=== PATIENT | male | born 1975 | race Caucasian/White ===

== ENCOUNTER 2022-11-08 09:17 | Outpatient (OUT) | payer BC, SELFPAY ==
[2022-11-08 09:54] LABS: Basophils Percent Auto 0.7 % (0.2-2.0); Eosinophils Absolute Auto 0.2 10^3/uL (0.0-0.7); Hematocrit 45.3 % (42.0-54.0); Hemoglobin 15.2 g/dL (14.0-18.0); Immature Granulocytes Abs Auto 0.01 10^3/uL (0.00-0.03); Immature Granulocytes Pct Auto 0.2 % (0.0-0.5); Lymphocytes Absolute Auto 2.2 10^3/uL (1.2-3.8); Lymphocytes Percent Auto 36.5 % (20.5-60.0); Mean Corpuscular HGB Conc 33.6 g/dL (29.9-35.2); Mean Corpuscular Hemoglobin 31.4 pg (25.9-34.0); Mean Corpuscular Volume 93.6 fL (80.0-94.0); Mean Platelet Volume 11.6 fL (9.5-13.5); Monocytes Absolute Auto 0.5 10^3/uL (0.3-0.8); Monocytes Percent Auto 7.6 % (1.7-12.0); Neutrophils Absolute Auto 3.1 10^3/uL (1.4-6.5); Platelet Count 210 10^3/uL (150-450); Red Blood Count 4.84 10^6/uL (4.70-6.10); Red Cell Distribution Width 12.3 % (11.0-15.0); White Blood Count 5.9 10^3/uL (4.0-11.0)
[2022-11-08 11:06] LABS: Alanine Aminotransferase 63 U/L (16-63); Albumin Globulin Ratio 1.3; Albumin Level 4.7 g/dL (3.4-5.0); Alkaline Phosphatase 132 U/L (46-116); Anion Gap 13.9; Aspartate Amino Transferase 39 U/L (15-37); BUN Creatinine Ratio 26.9; Bilirubin Total 2.3 mg/dL (0.2-1.0); Calcium 9.2 mg/dL (8.5-10.1); Carbon Dioxide 24.1 mmol/L (21.0-32.0); Chloride 102 mmol/L (98-107); Cholesterol 142 mg/dL (<=200); Estimated GFR (African America >60 (>=60); Estimated GFR (Non-African Ame >60 (>=60); Globulin 3.6 g/dL; Glucose 110 mg/dL (74-106); HDL Cholesterol 48 mg/dL (40-60); Sodium 136 mmol/L (136-145); Total Protein 8.3 g/dL (6.4-8.2); Triglycerides 80 mg/dL (<=150)
[2022-11-08 12:25] LABS: Estimated Average Glucose 114 mg/dL; Glycohemoglobin A1C 5.6 % (4.5-6.2)
== END 2022-11-08 09:18 | disposition home or self-care (01) ==
LOC: LAB 09:21
PROVIDERS: PCP Family Medicine; Visit Provider Nurse Practitioner Acute Care
DX: E78.2 Mixed hyperlipidemia (principal); I10 Essential (primary) hypertension; R73.03 Prediabetes
CPT/HCPCS: 36415; 80053; 80061; 83036; 85025

== ENCOUNTER 2024-03-21 14:04 | Outpatient (OUT) | payer BC, SELFPAY ==
--- NOTE | 2024-03-21 14:30 | CA_ITS ---
Patient Name: KWAME LYLES MR#: [id number] : 1975 Exam Date: 03/21/2024 Ordering Doctor: ARIEL ADAMS CNP ECHOCARDIOGRAM REPORT PROCEDURE: CA ECHO LIMITED INDICATIONS: Heart failure with reduced ejection fraction COMPARISON: None. DESCRIPTION: Limited ECHOCARDIOGRAM Real-time transthoracic echocardiography with 2D and M-mode performed. QUALITY: Technical quality was good. LEFT VENTRICLE: Normal chamber size. Mild concentric left ventricular hypertrophy. Systolic function is mildly reduced. Calculated left ventricular ejection fraction is 46%. LV EF: Mildly reduced left ventricular ejection fraction, (45-50%). DIASTOLIC: ATRIAL SEPTUM: LEFT ATRIUM: Mild dilatation. RIGHT ATRIUM: Mild dilatation. RIGHT VENTRICLE: Normal chamber size. Normal systolic function. TRICUSPID VALVE: Normal mobility and thickness. MITRAL VALVE: Normal mobility and thickness. There is no mitral annular calcification. AORTIC VALVE: Normal trileaflet appearance. No visible sclerosis. Normal leaflet mobility. AORTIC ROOT: Normal diameter and appearance. Ascending aorta is normal in size. PULMONIC VALVE: Normal thickness and mobility. PERICARDIUM: No evidence of pericardial effusion. IVC: IVC is dilated (2.8 cm), does not collapse. PLEURA: CONCLUSION: 1. Mild concentric ventricular hypertrophy with mildly reduced systolic function. There is global hypokinesis. Estimated LVEF is 45 to 50%. 2. Normal right ventricular size and systolic function. 3. Mild biatrial dilatation. 4. Limited study performed with no Doppler interrogation as requested. Adult Echocardiography Procedure Report Left Ventricle LVEDD (3.7 - 5.6 cm): 4.38 cm LVESD (2.2 - 4.0 cm): 3.43 cm LVIVS thickness (0.6 - 1.2 cm): 1.24 cm LVPW thickness (0.5 - 1.0 cm): 1.15 cm LVOT Diameter 2.38 cm Left Atrium LA Volume Index (2D A2C): 41.67 ml/m2 Left Atrium Systolic Dimension: 5.19 cm Mitral Valve Right Ventricle Aorta AO Root Diam: 2.98 cm Ascending Ao Diam: 2.80 cm Aortic Valve Tricuspid Valve Pulmonic Valve Right Atrium Right Atrium Systolic Pressure: 50.21 ml, 50.21 ml Dictated by: Alexi Alaniz M.D. on 03/21/2024 at 20:16 Approved by: Alexi Alaniz M.D. on 03/21/2024 at 20:18
== END 2024-03-21 14:05 | disposition home or self-care (01) ==
LOC: CARD 14:05
PROVIDERS: PCP Family Medicine; Visit Provider Nurse Practitioner Family
DX: I50.22 Chronic systolic (congestive) heart failure (principal)
CPT/HCPCS: 93308; 93356

== ENCOUNTER 2024-08-06 07:11 | Outpatient (OUT) | payer BC, SELFPAY ==
--- OUTSIDE RECORDS SUMMARY | 2024-08-06 07:13 | XMS_ITS | Encounter Summary ---
Author Organization [facility] Address [address] [place] [address] Care Team Providers Care School Custodian Name Role Phone Sergio Cano MD Unavailable Sergio Cano MD Primary Care Provider [phone] Encounter Details Date Type Department Care Team (Late st Contact Info) Description 01/09/2024 Abstract [facility] [address] [facility] [address] [place] [id number] Sergio Cano MD [address] [facility] [address] [place], [place] [id number] Social History Tobacco Use Types Packs/Day Years Used Date Smoking Tobacco: Never Smokeless Tobacco: Never Alcohol Use Standard Drinks/Week Comments Yes 0 (1 standard drink = 0.6 oz pur e alcohol) Social Connection and Isolation Panel [NHANES] A nswer Date Recorded In a typical week, how many times do you talk on the phone with family, friends, or neighbors? Patient declined 07/12/2023 How often do you get togethe r with friends or relatives? Patient declined 07/12/2023 How often do you attend orthodox or voodoo serv ices? Patient declined 07/12/2023 Do you belong to any clubs o r organizations such as orthodox groups, unions, fraternal or athletic groups, or school groups? Patient declined 07/12/2023 How often do you attend meet ings of the clubs or organizations you belong to? Patient declined 07/12/2023 Are you , , di vorced, , never , or living with a partner? Patient declined 07/12/2023 AUDIT-C Answer Date Recorded Q1: How often do you have a drink containing alc ohol? Patient declined 07/12/2023 Q2: How many drinks containi ng alcohol do you have on a typical day when you are drinking? Patient declined 07/12/2023 Q3: How often do you have si x or more drinks on one occasion? Patient declined 07/12/2023 Overall Financial Resource Strain (CARDIA) Answe r Date Recorded How hard is it for you to pa y for the very basics like food, housing, medical care, and heating? Patient declined 07/12/2023 [facility] - Occupational Stress Questionnaire Answer Date Recorded Do you feel stress - tense, restless, nervous, or anxious, or unable to sleep at night because your mind is troubled all the time - these days? Rather much 07/12/2023 Exercise Vital Sign Answer Date Recorde d On average, how many days pe r week do you engage in moderate to strenuous exercise (like a brisk walk)? Patient declined On average, how many minutes do you engage in exercise at this level? Patient declined 07/12/2023 Hunger Vital Sign Answer Date Recorded Within the past 12 months, y ou worried that your food would run out before you got the money to buy more. Patient declined Within the past 12 months, t he food you bought just didn't last and you didn't have money to get more. Patient declined 05/2023 PRAPARE - Transportation Answer Date Re corded In the past 12 months, has l ack of transportation kept you from medical appointments or from getting medications? Patient declined 07/12/2023 In the past 12 months, has l ack of transportation kept you from meetings, work, or from getting things needed for daily living? Patient declined 07/12/2023 Housing Stability Vital Sign Answer Shaq e Recorded In the last 12 months, was t here a time when you were not able to pay the mortgage or rent on time? Patient declined 07/12/19 24 Number of Places Lived in the Last Year Not on f ile 07/12/2023 In the last 12 months, was t here a time when you did not have a steady place to sleep or slept in a [place] health care facility (including now)? Patient declined 07/12/2023 Sex and Gender Information Value Date Recorded Sex Assigned at Not on file Legal Sex Male 7:06 PM EDT Gender Identity Not on file Sexual Orientation Not on file documented as of this encounter Plan of Treatment Not on file documented as of this encounter Visit Diagnoses Not on filedocumented in this encounter Care Teams School Custodian Relationship Specialty Start Date End Date Sergio Cano MD [address] [place] [address] [place] [address] PCP - [facility] 01/07/22 Sergio Cano MD [address] [place] [address] [place] [address] PCP - General Family Medicine 06/15/22 documented as of this encounter
--- OUTSIDE RECORDS SUMMARY | 2024-08-06 07:13 | XMS_ITS | Clinical Summary ---
Author Organization [facility] Healthcare Address [address] [place] [address] Care Team Providers Care Food Consultant Name Role Phone Sergio Cano MD Primary Care Provider [phone] Allergies No known active allergies Medications Farxiga 5 MG Take 1 tablet by mouth Daily Active furosemide (Lasix) 40 MG tablet 1 (one) time each day at the same time Active lisinopril 10 MG tablet 1 (one) time each day at the same time Active metoprolol succinate XL (Toprol-XL) 50 MG 24 hr tablet Take 1 tablet every day by oral route for 90 days. 4 Active atorvastatin (Lipitor) 40 MG tablet Take 1 tablet every day by oral route as directed for 90 days. 4 Active aspirin 81 MG EC tablet Take 1 tablet by mouth Daily Active fish oil concentrate (Hebron-3) 1000 MG capsule Take by mouth Daily Active coenzyme Q-10 100 MG capsule Take 100 mg by mouth Daily Active phentermine (Adipex-P) 37.5 MG tabletIndication s:Weight gain Take 1 tablet (37.5 mg) by mouth in the morning. Take before meals. 30 tablet 4 Active baclofen (Lioresal) 10 MG tabletIndication s:Strain of lumbar region, initial encounter Take 2 tablets (20 mg) by mouth in the morning and 2 tablets (20 mg) in the evening and 2 tablets (20 mg) before bedtime. Do all this for 7 days. 42 tablet 4 Active DULoxetine (Cymbalta) [address] Kal ns:Adjustment disorder with depressed mood TAKE ONE CAPSULE BY MOUTH EVERY DAY DO NOT CRUSH OR CHEW. 100 capsule 5 Active Active Problems Problem Noted Date Diagnosed Date Encounter for well adult exam with abnormal find ings 07/19/2023 Assessment & Plan (07/19/2023 9:32 AM EDT): Modest Alcohol consumption No Tobacco Seat Belt use Exercise Regularly No Text Drive Social Accountability Body mass index [BMI] 35.0-35.9, adult (Z68.35) 07/19/2023 Morbid (severe) obesity due to excess calories ( E66.01) 07/19/2023 Assessment & Plan (07/19/2023 9:32 AM EDT): Weight loss thru exercise and diet encouraged Fatty liver, alcoholic 07/19/2023 Assessment & Plan (07/19/2023 9:51 AM EDT): Decrease Alcohol intake Adjustment disorder with depressed mood 06/28/19 24 Elevated liver function tests 06/28/2023 Family history of pancreatic cancer 06/28/2023 Weight gain 06/28/2023 Essential (primary) hypertension 07/29/2022 Assessment & Plan (07/19/2023 9:32 AM EDT): Our specific goals, for your hypertension, is to keep your blood pressure less than 140/90, and the importance of weight control. We made recommendations on how to control your blood pressure, and minimize your risk of these copmplications. We also discussed your current barriers to a healthy living and importance of healthy diet and exercise. Prior to your visit today we have reviewed your chart and formed a plan to assist with providing you the best possible care. We reviewed the possible complications of hypertension including, stroke, heart failure and kidney impairment. In addition, we discussed your medications, the importance of taking them as prescribed. DASH diet handouts Assessment & Plan (06/28/2023 3:03 PM EDT): Our specific goals, for your hypertension, is to keep your blood pressure less than 140/90, and the importance of weight control. We made recommendations on how to control your blood pressure, and minimize your risk of these copmplications. We also discussed your current barriers to a healthy living and importance of healthy diet and exercise. Prior to your visit today we have reviewed your chart and formed a plan to assist with providing you the best possible care. We reviewed the possible complications of hypertension including, stroke, heart failure and kidney impairment. In addition, we discussed your medications, the importance of taking them as prescribed. DASH diet handouts Gout 07/29/2022 Chronic systolic congestive heart failure 2022 Assessment & Plan (06/28/2023 3:04 PM EDT): Follow up with cardiology Impaired fasting glucose 07/29/2022 Insomnia 07/29/2022 Male hypogonadism 07/29/2022 Assessment & Plan (06/28/2023 3:04 PM EDT): Patient has stopped meds Peripheral neuropathic pain 07/29/2022 Sleep apnea in adult 07/29/2022 Mixed hyperlipidemia 11/18/2020 Overview (06/28/2023): Last Assessment & Plan: Continue atorvastatin 40 mg daily his lipid profile is well controlled Dyspnea 07/13/2018 Overview (06/28/2023): Last Assessment & Plan: Improved and back to baseline Edema 07/13/2018 Overview (06/28/2023): Last Assessment & Plan: Improved and stable Encounters Date Type Department Care Team Description 05/22/2024 Refill [facility] [address] [place] [address] [place] [phone] Sergio Cano MD Adjustment disorder with depressed mood from Last 3 Months Immunizations Immunization Administration Dates Next Due Influenza, injectable, MDCK, preservative free, quadrivalent 03/07/2019 Family History Medical History Relation Name Comments Cancer Brother Cecilio Arthritis Father Law Hypertension Father Law Arthritis Father's Brother Jaron Cancer Father's Brother Jaron Stroke Father's Brother Jaron Arthritis Father's Sister 1 Felisa Cancer Father's Sister 2 Mica Cancer Father's Sister 3 Nikki K Diabetes Maternal Grandmother Irena Hypertension Maternal Grandmother Irena Cancer Mother Koki Arthritis Paternal Grandfather Blane Cancer Paternal Grandfather Blane Cancer Paternal Grandmother Quin Stroke Paternal Grandmother Quin Relation Name Status Comments Brother Cecilio Father Law Father's Brother Jaron Father's Sister 1 Felisa Father's Sister 2 Mica Father's Sister 3 Nikki Caruso Maternal Grandmother Irena Mother Koki Paternal Grandfather Blane Paternal Grandmother Quin Social History Tobacco Use Types Packs/Day Years Used Date Smoking Tobacco: Never Smokeless Tobacco: Never Tobacco Cessation:Counseling Given: Not Answered Alcohol Use Standard Drinks/Week Comments Yes 0 [...] declined 07/12/2023 How often do you attend amish or church serv ices? Patient declined 07/12/2023 Do you belong to any clubs o r organizations such as amish groups, unions, fraternal or athletic groups, or [...] medical care, and heating? Patient declined 07/12/2023 [facility] [place] [facility] - Occupational Stress Questionnaire Answer Date Recorded [...] place to sleep or slept in a half-way (including now)? Patient declined 07/12/2023 Sex and Gender Information Value Date Recorded Sex Assigned at Not on file Legal Sex Male 7:06 PM EDT Gender Identity Not on file Sexual Orientation Not on file Last Filed Vital Signs Vital Sign Reading Time Taken Comments Blood Pressure 128/78 07/19/2023 9:27 AM EDT Pulse 75 07/19/2023 9:27 AM EDT Temperature - - Respiratory Rate - - Oxygen Saturation 96% 07/19/2023 9:27 AM EDT Inhaled Oxygen Concentration - - Weight 127 kg (281 lb) 07/19/2023 9:27 AM EDT Height 188 cm (6' 2 ) 07/19/2023 9:27 AM EDT Body Mass Index 36.08 07/19/2023 9:27 AM EDT Plan of Treatment Health Maintenance Due Date Last Done Comments CT Colonography 1975 Colonoscopy 1975 FIT 1975 FOBT 1975 Sigmoidoscopy 1975 Influenza Vaccine (Season Ended) 2024 03/07/19 20 Colorectal Cancer Screening 07/28/2026 FIT-DNA 07/28/2026 07/29/2023 Procedures Procedure Name Priority Date/Time Associated Diagnosis Comments LAB COLOGUARD COLON CANCER SCREEN Routine 07/29/2023 6:30 AM EDT Screen for colon cancer from Last 3 Months or Most Recently Relevant to Health Maintenance Results * Cologuard?? colon cancer screening (07/29/2023 6:30 AM EDT) NONINV COLON CA DNA+OCC BLD SCRN STL-IMP Negative Negative 08/02/2023 5:34 PM EDT [employer] (CLIA #:[id number]) Comment: NEGATIVE TEST RESULT. A negative Cologuard result indicates a low likelihood that a colorectal cancer (CRC) or advanced adenoma (adenomatous polyps with more advanced pre-malignant features) is present. The chance that a person with a negative Cologuard test has a colorectal cancer is less than 1 in 1500 (negative predictive value >99.9%) or has an advanced adenoma is less than 5.3% (negative predictive value 94.7%). These data are based on a prospective cross-sectional study of 10,000 individuals at average risk for colorectal cancer who were screened with both Cologuard and colonoscopy. (Bambi Powers et al, N Engl J Med 2014;370(14):5297-8576) The normal value (reference range) for this assay is negative. COLOGUARD RE-SCREENING RECOMMENDATION: Periodic colorectal cancer screening is an important part of preventive healthcare for asymptomatic individuals at average risk for colorectal cancer. Following a negative Cologuard result, the [place] Cancer Society and U.S. Multi-Society Task Force screening guidelines recommend a Cologuard re-screening interval of 3 years. References: [place] Cancer Society Guideline for Colorectal Cancer Screening: https://www.cancer.org/cancer/sgqlr-vxohnw-fbqcup/xgfdasxjx-uiogqozhx-wtqtrlk/ac s-rec ommendations.html.; Fabricio DK, Brett BUTTS, Dominitz JK, Colorectal Cancer Screening: Recommendations for Physicians and Patients from the U.S. Multi-Society Task Force on Colorectal Cancer Screening , Am J Gastroenterology 2017; 112:1817-4749. TEST DESCRIPTION: Composite algorithmic analysis of stool DNA-biomarkers with hemoglobin immunoassay. Quantitative values of individual biomarkers are not reportable and are not associated with individual biomarker result reference ranges. Cologuard is intended for colorectal cancer screening of adults of either sex, 45 years or older, who are at average-risk for colorectal cancer (CRC). Cologuard has been approved for use by the U.S. FDA. The performance of Cologuard was established in a cross sectional study of average-risk adults aged 50-84. Cologuard performance in patients ages 45 to 49 years was estimated by sub-group analysis of near-age groups. Colonoscopies performed for a positive result may find as the most clinically significant lesion: colorectal cancer [4.0%], advanced adenoma (including sessile serrated polyps greater than or equal to 1cm diameter) [20%] or non- advanced adenoma [31%]; or no colorectal neoplasia [45%]. These estimates are derived from a prospective cross-sectional screening study of 10,000 individuals at average risk for colorectal cancer who were screened with both Cologuard and colonoscopy. (Bambi Rouse. et al, N Engl J Med 2014;370(14):1632-8093.) Cologuard may produce a false negative or false positive result (no colorectal cancer or precancerous polyp present at colonoscopy follow up). A negative Cologuard test result does not guarantee the absence of CRC or advanced adenoma (pre-cancer). The current Cologuard screening interval is every 3 years. ([place] Cancer Society and U.S. Multi-Society Task Force). Cologuard performance data in a 10,000 patient pivotal study using colonoscopy as the reference method can be accessed at the following location: www.[employer]/results. Additional description of the Cologuard test process, warnings and precautions can be found at www.[employer].com. Stool specimen (specimen) 07/29/2023 6:30 AM EDT 07/30/2023 7:39 AM EDT us Sergio Cano MD LAB MOLECULAR DIAGNOSTICS ORDERA BLES Final Result [employer] (CLIA #:[id number]) Elias [address] [place] [address], [place] [phone] from Last 3 Months or Most Recently Relevant to Health Maintenance Insurance [facility] Care Teams Food Consultant Relationship Specialty Start Date End Date Sergio Cano MD [address] [address] PCP - General Family Medicine 06/15/22
--- OUTSIDE RECORDS SUMMARY | 2024-08-06 07:13 | XMS_ITS | Encounter Summary ---
Author Organization [facility] Address [address] [place] [address] Care Team Providers Care Autocad Electrical Designer Name Role Phone Sergio Cano MD Unavailable Sergio Cano MD Primary Care Provider [phone] Encounter Details Date Type Department Care Team (Late st Contact Info) Description 07/25/2023 Abstract [facility] [address] [facility] [address] [place] [phone] Sergio Cano MD [address] [facility] 110 [place], [place] [id number] Social History Tobacco Use Types Packs/Day Years [...] declined 07/12/2023 How often do you attend restoration or church serv ices? Patient declined 07/12/2023 Do you belong to any clubs o r organizations such as restoration groups, unions, fraternal or athletic groups, or [...] medical care, and heating? Patient declined 07/12/2023 [facility] - Occupational Stress Questionnaire Answer Date Recorded [...] place to sleep or slept in a correction (including now)? Patient declined 07/12/2023 Sex and Gender Information Value Date Recorded Sex Assigned at Not on file Legal Sex Male 7:06 PM EDT Gender Identity Not on file Sexual Orientation Not on file documented as of this encounter Plan of Treatment Not on file documented as of this encounter Visit Diagnoses Not on filedocumented in this encounter Care Teams Autocad Electrical Designer Relationship Specialty Start Date End Date Sergio Cano MD [address] [place] [address] [place] [address] PCP - [facility] 01/07/22 Sergio Cano MD [address] [place] [address] [place] [address] PCP - General Family Medicine 06/15/22 documented as of this encounter
--- OUTSIDE RECORDS SUMMARY | 2024-08-06 07:13 | XMS_ITS | Encounter Summary ---
Author Organization [facility] Address [address] [place] [address] Care Team Providers Care Dramatic Teacher Name Role Phone Sergio Cano MD Unavailable Sergio Cano MD Primary Care Provider [phone] Encounter Details Date Type Department Care Team (Late st Contact Info) Description 02/20/2024 Orders Only [facility] [address] [place] [address] [place] [phone] Unallocated, [facility] Provider, [address] [place] [address] Social History Tobacco Use Types Packs/Day Years [...] declined 07/12/2023 How often do you attend muslim or protestant serv ices? Patient declined 07/12/2023 Do you belong to any clubs o r organizations such as muslim groups, unions, fraternal or athletic groups, or [...] medical care, and heating? Patient declined 07/12/2023 [facility] - Occupational Stress Questionnaire Answer Date [...] place to sleep or slept in a longterm (including now)? Patient declined 07/12/2023 Sex and Gender Information Value Date Recorded Sex Assigned at Not on file Legal Sex Male 7:06 PM EDT Gender Identity Not on file Sexual Orientation Not on file documented as of this encounter Plan of Treatment Not on file documented as of this encounter Procedures Procedure Name Priority Date/Time Associated Diagnosis Comments ECG 12-LEAD Routine 02/20/2024 1:01 PM EST documented in this encounter Results * ECG 12 lead (02/20/2024 1:01 PM EST) us [facility] Provider Unallocated ECG ORDERABLES Fin al Result documented in this encounter Visit Diagnoses Not on filedocumented in this encounter Care Teams Dramatic Teacher Relationship Specialty Start Date End Date Sergio Cano MD [address] [place] [address] [place], [place] [id number] PCP - [facility] 01/07/22 Sergio Cano MD [address] [place] [address] [place], [place] [phone] PCP - General Family Medicine 06/15/22 documented as of this encounter
--- OUTSIDE RECORDS SUMMARY | 2024-08-06 07:13 | XMS_ITS | Encounter Summary ---
Author Organization [facility] Address [address] [place] [address] Care Team Providers Care Foam Rubber Curer Name Role Phone Sergio Cano MD Unavailable Sergio Cano MD Primary Care Provider [phone] Encounter Details Date Type Department Care Team (Late st Contact Info) Description 04/20/2024 Abstract [facility] [address] [facility] [address] [place] [phone] Sergio Cano MD [address] [place] [facility] [address] [place], [place] [id number] Social History Tobacco Use Types Packs/Day Years [...] declined 07/12/2023 How often do you attend baptism or mosque serv ices? Patient declined 07/12/2023 Do you belong to any clubs o r organizations such as baptism groups, unions, fraternal or athletic groups, or [...] medical care, and heating? Patient declined 07/12/2023 [facility] - Occupational Stress Questionnaire Answer Date Recorded [...] place to sleep or slept in a senior living (including now)? Patient declined 07/12/2023 Sex and Gender Information Value Date Recorded Sex Assigned at Not on file Legal Sex Male 7:06 PM EDT Gender Identity Not on file Sexual Orientation Not on file documented as of this encounter Plan of Treatment Not on file documented as of this encounter Visit Diagnoses Not on filedocumented in this encounter Care Teams Foam Rubber Curer Relationship Specialty Start Date End Date Sergio Cano MD [address] [place] [address] [place] [address] PCP - [facility] 01/07/22 Sergio Cano MD [address] [place] [address] [place] [address] PCP - General Family Medicine 06/15/22 documented as of this encounter
--- OUTSIDE RECORDS SUMMARY | 2024-08-06 07:13 | XMS_ITS | Clinical Summary ---
Author Organization [facility] Address [address] [place] [address] Care Team Providers Care Plastic Card Grader Cardroom Name Role Phone Sergio Cano MD Primary Care Provider [phone] Allergies No known active allergies Medications DULoxetine (Cymbalta) [address] capsule Take 60 mg by mouth in the morning. 4 08/23/19 25 Active lisinopril 20 mg tabletIndication s:Essential hypertension Take 1 tablet (20 mg) by mouth in the morning. 90 tablet 3 4 01/16/20 25 Active furosemide (Lasix) 40 mg tabletIndication s:Chronic systolic heart failure (CMS/HCC),VOGT (dyspnea on exertion) Take 1 tablet (40 mg) by mouth in the morning. 90 tablet 3 4 01/25/20 25 Active be-kxq-kdslr-K1- lycopen-lutein (Centrum Silver Men) [id number] mcg tablet Take 1 tablet by mouth in the morning. Active atorvastatin (Lipitor) 40 mg tabletIndication s:Coronary artery disease due to lipid rich plaque Take 1 tablet (40 mg) by mouth at bedtime. 90 tablet 3 5 02/22/19 26 Active Additional Information Patient taking differently:40 mg oralEvery morning, Reported on 03/08/2024 apixaban (Eliquis) 5 mg tabletIndication s:Persistent atrial fibrillation (CMS/HCC) Take 1 tablet (5 mg) by mouth two times daily. 180 tablet 3 5 03/28/19 26 Active metoprolol succinate XL (Toprol-XL) 100 mg 24 hr tabletIndication s:Persistent atrial fibrillation (CMS/HCC) Take 1 tablet (100 mg) by mouth once daily as directed. Do not crush or chew. 90 tablet 3 5 04/06/19 27 Active dapagliflozin propanediol (Farxiga) 5 mgIndications:Co ngestive heart failure, unspecified HF chronicity, unspecified heart failure type (CMS/HCC) Take 1 tablet (5 mg) by mouth once daily as directed. 90 tablet 3 5 04/06/19 26 Active Active Problems Problem Noted Date Diagnosed Date Paroxysmal atrial fibrillation 01/04/2024 Body mass index (BMI) 35.0-35.9, adult 4 Encounter for well adult exam with abnormal find ings 07/19/2023 Fatty liver, alcoholic 07/19/2023 Morbid (severe) obesity due to excess calories 0 07/19/2023 Adjustment disorder with depressed mood 06/28/19 Elevated liver function tests 06/28/2023 Family history of pancreatic cancer 06/28/2023 Weight gain 06/28/2023 Impaired fasting glucose 07/29/2022 023 Insomnia 07/29/2022 10/22/2022 Male hypogonadism 07/29/2022 10/22/2022 Peripheral neuropathic pain 07/29/202210/08 Acute on chronic systolic heart failure, NYHA cl ass 2 04/02/2022 Overview (04/09/2022): cardiac function has normalized according to echo in February 2019 and February 2021 with therapy. Visit of 07/13/2018: This is a 43-year-old man referred for lower extremity edema, shortness of breath on exertion, and abnormal echocardiogram. About 4 months ago he started having symptoms of chills of breath on exertion and lower extremity edema. He was seen recently by his PCP and underwent testing that included an echocardiogram that showed reduced left ventricular systolic function with an ejection fraction of 40-45 percent. His right-sided pressures were normal by echocardiogram. He was started on Lasix 40 mg daily with good response of the leg swelling. However he continues to have shortness of breath on exertion. This is moderate in intensity and is relieved by rest. He denies chest pain. He has no palpitations. He is likely prediabetic with a fasting blood sugar of 125. His hemoglobin A1c was within normal range. He has obstructive sleep apnea and uses CPAP at night. I reviewed his blood pressure monitoring at home and shows elevated blood pressure consistently with systolic blood pressure between 140-160 and diastolic blood pressure around 90-100. Labs 05/09/2018: TG 96, HDL 38, Chol 180, LDL 123. notable for elevated D-Dimers after which he had a lower extremity duplex and this was negative. EKG today 07/13/2018: Normal sinus rhythm venous duplex scan 05/20/2018: No deep venous thrombosis in the legs. Echocardiogram 06/19/2018: Left ventricular systolic function is difficult to assess but appears reduced with visually estimated ejection fraction of about 40-45 percent. Right ventricular systolic function appears preserved. Mild mitral regurgitation. Normal right sided pressures. Visit of 07/26/2018: He is seen in follow up. At last visit I started him on lisinopril and metoprolol succinate. His blood pressure has been controlled. His dyspnea is still the same. His leg swelling has improved significantly on furosemide. BMP 07/24/2018 was w/n normal except for elevated BS but he was not fasting. Visit of 09/04/2018: He is seen in follow-up. After last visit I proceeded with cardiac catheterization that showed normal coronary arteries. He feels good. No chest pain, some dyspnea on exertion. In NYHA class II. No palpitation. Mild leg swelling. Cardiac catheterization 08/03/2018: 1. Normal coronary angiogram. 2. Mildly elevated filling pressures. 3. Normal pulmonary arterial pressures. 4. Preserved cardiac output and cardiac index. 5. No evidence of aortic stenosis. Visit of 06/18/2019, He is seen in follow-up via telemedicine. He has been doing very well. He has no angina and no shortness of breath. He has been using Lasix on an as-needed basis. In May he underwent appendectomy. His BMP at that time showed normal renal function and normal electrolytes. From a cardiac perspective his most recent echocardiogram in February 2019 showed normalization of his ventricular function with treatment. His blood pressure recently has been elevated with systolic levels around 150. ECHO 02/19/19 Global left ventricular systolic function is normal (Visually estimated EF 60- 65%). The left ventricle is normal size. Left ventricular wall thickness is normal. No regional wall motion abnormality. Normal diastolic function. Normal right ventricular systolic function. The right ventricle is normal in size. Doppler studies suggest normal right sided pressures. The IVC is dilated. There is no inspiratory collapse of the IVC. Visit of 03/06/2021: He is seen in follow-up. He has been doing great. No chest pain. No heart failure symptoms. He uses CPAP at night. No lower extremity edema. No palpitations. Labs from 05/20/20: BUN 14, CR 1.0- normal LFT normal Chol 196, Trig 95, HDL 39, [id number] - elevated A1C 5.5 - normal CBC normal 11/18/20 A1C 5.5 Echocardiogram 02/18/2021: LV systolic function is normal, EF 55 to 60%, septum abnormal in motion likely related to underlying bundle branch block, biatrial enlargement, right ventricle is mildly dilated with normal systolic function, no significant valvular dysfunction, RVSP 26 mmHg. Blood testing 01/13/2021: LFTs normal, cholesterol 85, HDL 37, triglycerides 48, LDL 38. Blood testing 05/20/2020: BUN 14, creatinine 1.0, potassium 5.1. Assessment & Plan (04/09/2022 1:32 PM EST): NYHC II C Currently weight is down 6 pounds from last visit symptoms are much improved renal function remained stable Discussed with patient he can increase Lasix as needed to 40 mg twice daily for weight gain, Increased shortness of breath, increased edema and he voiced understanding Continue goal-directed medical therapy with aspirin, Farxiga, Lasix 40 mg daily, lisinopril and Toprol Assessment & Plan (04/02/2022 12:48 PM EST): NYHC- II-III stage C Continue GDMT- ASA, lipitor, toprol, farxiga and lisinopril. Diuretic therapy- will increase lasix to 40 mg bid at least 2-3 days- labs to be drawn today and repeat BMP in 1 week Monitor daily weights, I&O, fluid restriction 1.5-2L/day, renal function and electrolytes- please maintain K+>4 and Mg > 2 Heart disease, hypertensive, with heart failure 04/02/2022 Assessment & Plan (04/09/2022 1:33 PM EST): Controlled continue med regimen Assessment & Plan (04/02/2022 12:49 PM EST): Currently elevated- will diurese pt and re-evaluate next week May benefit transition to entresto from lisinopril YUE (obstructive sleep apnea) 04/02/2022 Mixed hyperlipidemia 11/18/2020 Assessment & Plan (04/09/2022 1:33 PM EST): Continue atorvastatin 40 mg daily his lipid profile is well controlled Assessment & Plan (04/02/2022 12:49 PM EST): Continue lipitor Hypertensive disorder 12/12/2019 Systolic heart failure 12/12/2019 Assessment & Plan (04/02/2022 12:49 PM EST): As above Obstructive sleep apnea syndrome 12/12/2019 Dyspnea 07/13/2018 Assessment & Plan (04/09/2022 1:33 PM EST): Improved and back to baseline Assessment & Plan (04/02/2022 12:50 PM EST): Increased VOGT with fluid overload Will repeat echocardiogram, and basic labs today Increase diuretic to bid 40 mg lasix Edema 07/13/2018 Assessment & Plan (04/09/2022 1:33 PM EST): Improved and stable Assessment & Plan (04/02/2022 12:51 PM EST): As above- increase diuretics Resolved Problems Problem Noted Date Diagnosed Date Resolved Date Gout 07/29/2022 10/22/2022 05/29/2024 Encounters Date Type Department Care Team Description 06/07/2024 3:00 PM EDT Office Visit [facility] [place] [address] [place] [address] Ladi Guevara CNP Paroxysmal atrial fibrillation (CMS/HCC) (Primary Dx); Chronic systolic heart failure (CMS/HCC); Benign hypertensive heart disease with heart failure (CMS/HCC); S/P ablation of atrial fibrillation; Mixed hyperlipidemia from Last 3 Months Family History Medical History Relation Name Comments Cancer Brother Cecilio Atrial fibrillation Father Law Heart failure Father Law Systolic Heart attack Maternal Grandfather Doc Cancer Mother Koki Cancer Paternal Grandfather Elijah Cancer Paternal Grandmother Quin Relation Name Status Comments Brother Cecilio Alive Father Law Alive Maternal Grandfather Doc Mother Koki Paternal Grandfather Elijah Paternal Grandmother Quin Sister Alive Social History Tobacco Use Types Packs/Day Years Used Date Smoking Tobacco: Never Smokeless Tobacco: Never Tobacco Cessation:Counseling Given: Not Answered Alcohol Use Standard Drinks/Week Comments Yes 10 (1 standard drink = 0.6 oz pu re alcohol) 10-12 BEERS ON THE WEEKENDS [place] Safety & Environment Answer Date Rec orded Fear of Current or Ex-Partner Not on file Emotionally Abused Not on file 03/31/2023 Physically Abused Not on file 03/31/2023 Sexually Abused Not on file 03/31/2023 Physically or Sexually Abused Not on file Sex and Gender Information Value Date Recorded Sex Assigned at Not on file Legal Sex Male 12:14 AM EDT Gender Identity Not on file Sexual Orientation Not on file Last Filed Vital Signs Vital Sign Reading Time Taken Comments Blood Pressure 144/93 06/07/2024 3:01 PM EDT Pulse 81 06/07/2024 3:01 PM EDT Temperature 36.3 C (97.3 F) 04/19/2024 5:15 PM EDT Respiratory Rate 15 04/19/2024 5:15 PM EDT Oxygen Saturation 95% 06/07/2024 3:01 PM EDT Inhaled Oxygen Concentration - - Weight 131 kg (289 lb) 06/07/2024 3:01 PM EDT Height 188 cm (6' 2 ) 06/07/2024 3:01 PM EDT Body Mass Index 37.11 06/07/2024 3:01 PM EDT Plan of Treatment Upcoming Encounters Date Type Department Care Team (Late st Contact Info) Description 08/07/2024 9:00 AM EDT Office Visit [facility] [address] [place] [address] Ladi Guevara, SELVIN [address] [place] [address] Health Maintenance Due Date Last Done Comments CT Colonography 1973 Colonoscopy 1973 FIT-DNA 1973 FOBT 1973 Sigmoidoscopy 1973 Depression Screening 1985 Hepatitis B Vaccines (1 of 3 - 19+ 3-dose series) 1992 Pneumococcal Vaccine: Pediatrics (0 to 5 Years) and At-Risk Patients (6 to 64 Years) (1 of 2 - PCV) 1992 Adult Tetanus 1995 Zoster Vaccines (1 of 2) 2023 COVID-19 Vaccine ( - 2023-2 5 season) 2023 06/04/2020, 05/14/2020 Colorectal Cancer Screening 07/28/2024 FIT 07/28/2024 07/29/2023 Influenza Vaccine (Season Ended) 2024 03/07/2019 HIB Vaccines Aged Out No longer eligi ble based on patient's age to complete this topic HPV Vaccines Aged Out No longer eligi ble based on patient's age to complete this topic IPV Vaccines Aged Out No longer eligi ble based on patient's age to complete this topic Meningococcal B Vaccine Aged Out No l onger eligible based on patient's age to complete this topic Meningococcal Vaccine Aged Out No charmaine carmita eligible based on patient's age to complete this topic Rotavirus Vaccines Aged Out No longer eligible based on patient's age to complete this topic Procedures Procedure Name Priority Date/Time Associated Diagnosis Comments ECG 12 LEAD UNIT PERFORMED Routine 06/07/2024 3:01 PM EDT Paroxysmal atrial fibrillation (CMS/HCC) from Last 3 Months Results * ECG 12 lead unit performed (06/07/2024 3:01 PM EDT) Ladi Guevara CNP ECG ORDERABLES Final Result from Last 3 Months Insurance [facility] Care Teams Plastic Card Grader Cardroom Relationship Specialty Start Date End Date Sergio Cano MD [address] [place] [address] PCP - General 04/09/22
--- OUTSIDE RECORDS SUMMARY | 2024-08-06 07:13 | XMS_ITS | CCD ---
Author Organization [facility] Care Team Providers Care Signaling Project Engineer Name Role Phone UNKNOWN, PROVIDER Admitting Unavailable UNKNOWN, PROVIDER Attending Unavailable SERGIO HERNANDEZ Referring Unavailable DAVIDSERGIO Kaur Primary Care Unavailable JOEY, CHRISTOPH Admitting Unavailable JOEY, CHRISTOPH Attending Unavailable DAVID, DR FREED Primary Care Unavailable JOEY, CHRISTOPH Consulting Unavailable JOEY, CHRISTOPH Admitting Unavailable JOEY, CHRISTOPH Attending Unavailable DAVID, DR FREED Primary Care Unavailable CHRISTOPH COOK Consulting Unavailable SERGIO HERNANDEZ Attending Unavailable SERGIO HERNANDEZ Referring Unavailable SERGIO HERNANDEZ Attending Unavailable Ty JONES Attending Unavailable Sergio Hernandez MD Unavailable Sergio Hernandez MD Primary Care Provider ARIEL GUEVARA Attending Unavailable FELIX RUBY Attending Unavailable RAMY, JAVIER Attending Unavailable RAMYJAVIER Admitting Unavailable RAMY, JAVIER Attending Unavailable JAVIER MOYA Referring Unavailable ARIEL GUEVARA Referring Unavailable RAMY, JAVIER Referring Unavailable RAMY, JAVIER Referring Unavailable RAMYJAVIER Weber Admitting Unavailable RAMY, JAVIER Attending Unavailable RAMY, JAVIER Referring Unavailable RAMY, JAVIER Referring Unavailable ARIEL GUEVARA Attending Unavailable Allergies Allergy Classification Reported Allergen(s) Allergy Type Date of Onset Reaction(s) Facility (1 source) No Known Medication Allergies; Translations: [No Known Medication Allergies] Propensity to adverse reactions (disorder) [facility] Repository Medications Current Medications Medication Drug Class(es) Dates Sig (Normalized) Sig (Original) aspirin 81 mg delayed release oral tablet (2 sources) Platelet Aggregation Inhibitor, Nonsteroidal Anti-inflammatory Drug take 1 tablet by mouth once daily aspirin 81 MG EC tablet Take 1 tablet by mouth Daily Active atorvastatin 40 mg oral tablet (2 sources) HMG-CoA Reductase Inhibitor Start: 03-15-2023 take 1 tablet by mouth once daily atorvastatin (Lipitor) 40 MG tablet Take 1 tablet every day by oral route as directed for 90 days. 03/15/2023 Active baclofen 10 mg oral tablet (2 sources) gamma-Aminobutyric Acid-ergic Agonist Start: 09-15-2023 take 2 tablets by mouth in the morning, then take 2 tablets by mouth in the evening, then take 2 tablets by mouth at bedtime baclofen (Lioresal) 10 MG tablet Indications: Strain of lumbar region, initial encounter Take 2 tablets (20 mg) by mouth in the morning and 2 tablets (20 mg) in the evening and 2 tablets (20 mg) before bedtime. Do all this for 7 days. 42 tablet 09/15/2023 Active codeine phosphate 2 mg/ml / guaiFENesin 20 mg/ml oral solution (1 source) Opioid Agonist Start: 03-29-2024 End: 04-05-2024 take 10 mL by mouth every six hours for cough guaiFENesin-codei ne (Robitussin-AC) 100-10 MG/5ML syrup Indications: Influenza A Take 10 mL by mouth every 6 (six) hours if needed for cough for up to 7 days 300 mL 03/29/2024 04/05/2024 Active dapagliflozin 5 mg oral tablet (2 sources) Sodium-Glucose Cotransporter 2 Inhibitor take 1 tablet by mouth once daily Farxiga 5 MG Take 1 tablet by mouth Daily Active docosahexaenoic acid 120 mg / eicosapentaenoic acid 180 mg oral capsule (2 sources) fish oil concentrate ([place]-3) 1000 MG capsule Take by mouth Daily Active DULoxetine 60 mg delayed release oral capsule (2 sources) Serotonin and Norepinephrine Reuptake Inhibitor Start: 07-19-2023 End: 08-22-2024 take 1 capsule by mouth once daily DULoxetine (Cymbalta) [address] capsule Indications: Adjustment disorder with depressed mood (CMS/HCC) Take 1 capsule (60 mg) by mouth Daily Do not crush or chew. 100 capsule 3 07/19/2023 08/22/2024 Active furosemide 40 mg oral tablet (2 sources) Loop Diuretic furosemide (Lasix) 40 MG tablet 1 (one) time each day at the same time Active lisinopril 10 mg oral tablet (2 sources) Angiotensin Converting Enzyme Inhibitor lisinopril 10 MG tablet 1 (one) time each day at the same time Active 24 hr metoprolol succinate 50 mg extended release oral tablet (2 sources) beta-Adrenergic Víctor Start: 05-27-2023 take 1 tablet by mouth once daily metoprolol succinate XL (Toprol-XL) 50 MG 24 hr tablet Take 1 tablet every day by oral route for 90 days. 05/27/2023 Active phentermine hydrochloride 37.5 mg oral tablet (2 sources) Sympathomimetic Amine Anorectic Start: 07-19-2023 take 1 tablet by mouth before mealtime phentermine (Adipex-P) 37.5 MG tablet Indications: Weight gain Take 1 tablet (37.5 mg) by mouth in the morning. Take before meals. 30 tablet 07/19/2023 Active ubidecarenone 100 mg / vitamin e 5 unt oral capsule (2 sources) take 1 capsule by mouth once daily coenzyme Q-10 100 MG capsule Take 100 mg by mouth Daily Active Problems Active Problems Problem Classification Problem Date Documented Da te Episodic/Chronic Adjustment disorders (2 sources) Adjustment disorder with depressed mood; Translations: [Adjustment disorder with depressed mood] Onset: 06-28-2023 06-28-2023 Chronic Alcohol-related disorders (2 sources) Alcoholic fatty liver; Translations: [Alcoholic fatty liver] Onset: 07-19-2023 07-19-2023 Chronic Cardiac dysrhythmias (2 sources) Paroxysmal atrial fibrillation; Translations: [Paroxysmal atrial fibrillation] Onset: 03-07-2024 Chronic Congestive heart failure; nonhypertensive (9 sources) Chronic systolic (congestive) heart failure; Translations: [Chronic systolic heart failure] Onset: 04-02-2022 Chronic Disorders of lipid metabolism (4 sources) Mixed hyperlipidemia; Translations: [Mixed hyperlipidemia] Onset: 11-18-2020 06-28-2023 Chronic Essential hypertension (4 sources) Essential hypertension; Translations: [Essential (primary) hypertension] Onset: 04-02-2022 07-19-2023 Chronic Gout and other crystal arthropathies (2 sources) Gout; Translations: [Gout, unspecified] Onset: 07-29-2022 07-29-2022 Chronic Influenza (1 source) Influenza due to Influenza A virus; Translations: [Influenza due to other identified influenza virus with other respiratory manifestations] 03-29-2024 Episodic Other endocrine disorders (2 sources) Male hypogonadism; Translations: [Testicular hypofunction] Onset: 07-29-2022 07-29-2022 Chronic Other lower respiratory disease (4 sources) Other forms of dyspnea; Translations: [OTHER FORMS OF DYSPNEA] Onset: 04-08-2022 Episodic Other nutritional; endocrine; and metabolic disorders (2 sources) Body mass index 30+ - obesity; Translations: [Body mass index (BMI) 35.0-35.9, adult] Onset: 07-19-2023 07-19-2023 Chronic Other nutritional; endocrine; and metabolic disorders (2 sources) Obesity caused by energy imbalance; Translations: [Morbid (severe) obesity due to excess calories] Onset: 07-19-2023 07-19-2023 Chronic Residual codes; unclassified (2 sources) Sleep apnea; Translations: [Sleep apnea, unspecified] Onset: 07-29-2022 07-29-2022 Chronic Residual codes; unclassified (2 sources) Obstructive sleep apnea (adult) (pediatric); Translations: [Obstructive sleep apnea (adult) (pediatric)] Onset: 04-02-2022 Chronic Unclassified (2 sources) Other persistent atrial fibrillation; Translations: [Other persistent atrial fibrillation] Onset: 01-04-2024 Past or Other Problems Problem Classification Problem Date Documented Da te Episodic/Chronic Cardiac dysrhythmias (2 sources) Palpitations; Translations: [Palpitations] Onset: 01-04-2024 Episodic Diabetes mellitus without complication (2 sources) Impaired fasting glycemia; Translations: [Impaired fasting glucose] Onset: 07-29-2022 07-29-2022 Episodic Other connective tissue disease (2 sources) Peripheral neuropathic pain; Translations: [Neuralgia and neuritis, unspecified] Onset: 07-29-2022 07-29-2022 Episodic Other lower respiratory disease (2 sources) Dyspnea; Translations: [Dyspnea, unspecified] Onset: 07-13-2018 06-28-2023 Episodic Other nutritional; endocrine; and metabolic disorders (2 sources) Weight increased; Translations: [Abnormal weight gain] Onset: 06-28-2023 06-28-2023 Episodic Other screening for suspected conditions (not mental disorders or infectious disease) (2 sources) Other specified abnormal findings of blood chemistry; Translations: [Other abnormal blood chemistry] Onset: 06-28-2023 06-28-2023 Episodic Residual codes; unclassified (2 sources) Insomnia; Translations: [Insomnia, unspecified] Onset: 07-29-2022 07-29-2022 Episodic Residual codes; unclassified (2 sources) Edema; Translations: [Edema, unspecified] Onset: 07-13-2018 06-28-2023 Episodic Residual codes; unclassified (2 sources) Family history of malignant neoplasm of pancreas; Translations: [Family history of malignant neoplasm of digestive organs] Onset: 06-28-2023 06-28-2023 Episodic Results Test Name Value Interpretation Reference Range Facility Telephoneon 04-27-2024 Telephone [id number] Ramiro Gamino 1975 M Date Provider Department Center 04/27/2024 JOSE MARIA DURAN [facility] MD [facility] Family History Problem Relation Age of Onset Cancer Mother Atrial fibrillation Father Heart failure Father Comments: Systolic Cancer Brother Heart attack Maternal Grandfather Cancer Paternal Grandmother Cancer Paternal Grandfather Family Status - Relation Status Age at Mother Father Brother Maternal Grandfather Paternal Grandmother Paternal Grandfather Reason for Visit and Comments: f/u post afib ablation [Other] Normal [facility] BASIC METABOLIC PANELon 04-07 Anion gap [Moles/Vol] 11 mmol/L Normal 7-20 [facility] Comment on above: Performed By: #### L [id number] ####[facility] (BEAKER)[address] [place] [address] Calcium [Mass/Vol] 9.5 mg/dL Normal 8.6-10.3 [facility] Comment on above: Performed By: #### L [id number] ####[facility] (BEAKER)[address] [place] [address] Chloride [Moles/Vol] 105 mmol/L Normal 98-107 [facility] Comment on above: Performed By: #### L [id number] ####[facility] (BEAKER)[address] [place] [address] CO2 [Moles/Vol] 26 mmol/L Normal 21-31 [facility] Comment on above: Performed By: #### L [id number] ####[facility] ([facility])[address] [place] [address] Creatinine [Mass/Vol] 0.90 mg/dL Normal 0.70-1.30 [facility] Comment on above: Performed By: #### L [id number] ####[facility] ([facility])[address] [place] [address] GLOMERULAR FILTRATION RATE ML/MIN/1.73 SQ M.PREDICTED 103.4 mL/min/1.73m*2 Normal >60.0 [facility] Comment on above: Result Comment: The [facility]???s estimated glomerular filtration rate (eGFR) will no longer include consideration of race in its calculation. The National Kidney Foundation???s eGFR Task Force developed new recommendations for the estimation of the glomerular filtration rate in the [place] They recommend immediate implementation of the new equation refit without the race variable in all laboratories because the calculation does not include race. In addition to not including race in the calculation and reporting, it included diversity in its development, and has acceptable performance characteristics and potential consequences that do not disproportionately affect any one group of individuals. Performed By: #### L [id number] ####[facility] ([facility])[address] [place] [address] Glucose [Mass/Vol] 132 mg/dL High 70-100 [facility] Comment on above: Performed By: #### L [id number] ####[facility] ([facility])[address] [place] [address] Potassium [Moles/Vol] 4.2 mmol/L Normal 3.5-5.1 [facility] Comment on above: Performed By: #### L [id number] ####[facility] ([facility])[address] [place] [address] Sodium [Moles/Vol] 138 mmol/L Normal 136-145 [facility] Comment on above: Performed By: #### L [id number] ####[facility] ([facility])[address] [place] [address] Urea nitrogen [Mass/Vol] 14 mg/dL Normal 7-25 [facility] Comment on above: Performed By: #### L [id number] ####[facility] ([facility])[address] [facility] [place] [address] UREA NITROGEN/CREATININE (MASS RATIO) IN SER/PLAS 15.6 Normal [facility] Comment on above: Performed By: #### L [id number] ####[facility] ([facility])[address] [place] [address] CBCon 04-19-2024 Erythrocyte distribution width (RBC) [Ratio] 13.2 % Normal 11.5-15.0 [facility] Comment on above: Performed By: #### L [id number] #### [facility] ([facility]) [address] [place] [address] ERYTHROCYTE MEAN CORPUSCULAR HEMOGLOBIN CONCENTRATION (G/DL) BY AUTOMATED 33.5 g/dL Normal 32.0-35.0 [facility] Comment on above: Performed By: #### L [id number] #### [facility] ([facility]) [address] [place] [address] Hematocrit (Bld) [Volume fraction] 46.2 % Normal 39.0-50.0 [facility] Comment on above: Performed By: #### L [id number] #### [facility] ([facility]) [address] [place] [address] Hemoglobin (Bld) [Mass/Vol] 15.5 g/dL Normal 13.0-17.0 [facility] Comment on above: Performed By: #### L [id number] #### [facility] ([facility] [address] [place] [address] MCH (RBC) [Entitic mass] 30.2 pg Normal 27.0-33.0 [facility] Comment on above: Performed By: #### L [id number] #### [facility] ([facility] [address] [place] [address] MCV (RBC) [Entitic vol] 89.9 fL Normal 82.0-98.0 [facility] Comment on above: Performed By: #### L [id number] #### [facility] ([facility]) [address] [place] [address] PLATELETS (10*3/UL) IN BLOOD AUTOMATED COUNT 234 10*3/uL Normal 150-400 [facility] Comment on above: Performed By: #### L [id number] #### [facility] ([facility]) [address] [place] [address] RBC (Bld) [#/Vol] 5.14 10*6/uL Normal 4.20-5.70 [facility] Comment on above: Performed By: #### L [id number] #### [facility] ([facility]) [address] [place] [address] WBC (Bld) [#/Vol] 6.46 10*3/uL Normal 4.00-10.60 [facility] Comment on above: Performed By: #### L [id number] #### [facility] ([facility] [address] [place] [address] HPon 04-19-2024 [facility] Electrophysiology Consult Note MD Cardiology - [facility] Reason for visit: Afib HPI: Ramiro Gamino is a 49 y.o. year old with past medical history of, HTN, Obesity, DM2, systolic heart failure with improved ejection fraction on subsequent follow-up. He has nonischemic cardiomyopathy with normal coronary angiogram in July 2018. His left ventricular ejection fraction improved from 40% in June 2018-50 5-60% in February 2019 and 2021. In December, he noticed palpitations when he was laying down. [place] like quivering in his chest and a fast HR. He thought this was maybe due to stress and noticed increased shortness of breath with exertion. He was cardioverted to SR and stayed in it for 1 month and he reverted to Afib. He has not been on any AAD thus far EKG 02/27/24 Afib with varibale VR PMH: Past Medical History: Diagnosis Date Afib (CMS/HCC) CHF (congestive heart failure) (CMS/HCC) Depression Hyperlipidemia Hypertension Sleep apnea PSH: Past Surgical History: Procedure Laterality Date APPENDECTOMY BACK SURGERY CARDIAC CATHETERIZATION SH: Social Determinants of Health Tobacco Use: Low Risk (04/19/2024) Patient History Smoking Tobacco Use: Never Smokeless Tobacco Use: Never Passive Exposure: Not on file Alcohol Use: Patient Declined (07/12/2023) Received from [facility] AUDIT-C Frequency of Alcohol Consumption: Patient declined Average Number of Drinks: Patient declined Frequency of Binge Drinking: Patient declined Financial Resource Strain: Patient Declined (07/12/2023) Received from [facility] Overall Financial Resource Strain (CARDIA) Difficulty of Paying Living Expenses: Patient declined Food Insecurity: Patient Declined (07/12/2023) Received from [facility] Hunger Vital Sign Worried About Running Out of Food in the Last Year: Patient declined Ran Out of Food in the Last Year: Patient declined Transportation Needs: Patient Declined (07/12/2023) Received from [facility] PRAPARE - Transportation Lack of Transportation (Medical): Patient declined Lack of Transportation (Non-Medical): Patient declined Physical Activity: Patient Declined (07/12/2023) Received from [facility] Exercise Vital Sign Days of Exercise per Week: Patient declined Minutes of Exercise per Session: Patient declined Stress: Stress Concern Present (07/12/2023) Received from [facility] [place] [employer] - Occupational Stress Questionnaire Feeling of Stress : Rather much Social Connections: Patient Declined (07/12/2023) Received from [facility] Social Connection and Isolation Panel [NHANES] Frequency of Communication with Friends and Family: Patient declined Frequency of Social Gatherings with Friends and Family: Patient declined Attends Mu-Ism Services: Patient declined Active Member of Clubs or Organizations: Patient declined Attends Club or Organization Meetings: Patient declined Marital Status: Patient declined Intimate Partner Violence: Unknown (03/31/2023) MD Safety & Environment Fear of Current or Ex-Partner: Not on file Emotionally Abused: Not on file Physically Abused: Not on file Sexually Abused: Not on file Physically or Sexually Abused: Not on file Depression: Not on file Housing Stability: Patient Declined (07/12/2023) Received from [facility] Housing Stability Vital Sign Unable to Pay for Housing in the Last Year: Patient declined Number of Places Lived in the Last Year: Not on file Unstable Housing in the Last Year: Patient declined Utilities: Not on file Health Literacy: Not on file Allergies: No Known Allergies Weight: 129kg Visit Vitals BP (!) 154/98 Pulse 63 Temp 36 ???C (96.8 ???F) Resp 18 Ht 1.88 m (6' 2 ) Wt 131 kg (289 lb 7.4 oz) SpO2 99% BMI 37.16 kg/m??? Smoking Status Never BSA 2.62 m??? Meds: No current facility-administered medications on file prior to encounter. Current Outpatient Medications on File Prior to Encounter Medication Sig Dispense Refill atorvastatin (Lipitor) 40 mg tablet Take 1 tablet (40 mg) by mouth at bedtime. (Patient taking differently: Take 40 mg by mouth in the morning.) 90 tablet 3 DULoxetine (Cymbalta) [address] capsule Take 60 mg by mouth in the morning. furosemide (Lasix) 40 mg tablet Take 1 tablet (40 mg) by mouth in the morning. 90 tablet 3 lisinopril 20 mg tablet Take 1 tablet (20 mg) by mouth in the morning. 90 tablet 3 kq-rkb-vmegx-K1-lycopen -lutein (Centrum Silver Men) [id number] mcg tablet Take 1 tablet by mouth in the morning. ROS: Cardio Basic Cardiovascular Symptoms: no lightheadedness, no leg edema, no syncope, no orthopnea, no PND, no claudication, Constitutional Constitutional: no fever, no night sweats, no significant weight gain, no significant weight loss, no exercise intolerance Eyes Eyes: no dry eyes, no irritation, no vision change ENMT Ears: no diffi (more content not included)... Normal [facility] NURSNOTEon 04-19-2024 NURSNOTE No bleeding to groin site. Cont in NSR. DC instructions reviewed with patient and , copy given. Prescriptions sent to pts [facility] in [place] (pt aware). Stable for DC home. Normal [facility] POCT GLUCOSE METER UNSOLICIT ED RESULTSon 04-19-2024 Glucose [Mass/Vol] 134 mg/dL High 70-105 [facility] Comment on above: Order Comment: Waive d Testing in the ED is performed under the ED CLIA certificate #[id number]. Result Comment: [facility] [place] Performed By: #### L [id number] #### [facility] (BEAKER) [address] [place] [address] PROTIME-INRon 04-19-2024 INR IN PPP BY COAGULATION ASSAY 1.12 High 0.90-1.10 [facility] Comment on above: Result Comment: [facility] P RECOMMENDED INR FOR WARFARIN THERAPY CONDITION INR PROPHYLAXIS OF VENOUS THROMBOSIS 2-3 (HIGH-RISK SURGERY) TREATMENT OF VENOUS THROMBOSIS 2-3 TREATMENT OF PULMONARY EMBOLISM 2-3 PREVENTION OF SYSTEMIC EMBOLISM: 2-3 ACUTE MYOCARDIAL INFARCTION TISSUE HEART VALVES VALVULAR HEART DISEASE ATRIAL FIBRILLATION RECURRENT SYSTEMIC EMBOLISM MECHANICAL HEART VALVE 2.5-3.5 FROM: ORAL ANTICOAGULANTS. MECHANISM OF ACTION, CLINICAL EFFECTIVENESS, AND OPTIMAL THERAPEUTIC RANGE. CHEST 1995;108:231S-246S. Performed By: #### L [id number] ####[facility] (BEAKER)[address] [place] [address] PROTHROMBIN TIME (PT) IN PPP BY COAGULATION ASSAY 14.4 Seconds Normal 12.3-14.8 [facility] Comment on above: Performed By: #### L [id number] ####[facility] ([facility])[address] [place] [address] Prep for Procedureon 025 Prep for Procedure [id number] Ramiro Gamino 1975 M Date Provider Department Center 04/19/20241986-JOSE MARIA RAMIREZ [facility] VASC LAB MD [facility] Family History Problem Relation Age of Onset Cancer Mother Atrial fibrillation Father Heart failure Father Comments: Systolic Cancer Brother Heart attack Maternal Grandfather Cancer Paternal Grandmother Cancer Paternal Grandfather Family Status - Relation Status Age at Mother Father Brother Maternal Grandfather Paternal Grandmother Paternal Grandfather Normal [facility] Orders Onlyon 04-17-2024 Orders Only [id number] Ramiro Gamino 1975 M Date Provider Department Center 04/17/20241986JOSE MARIA RAMIREZ [facility] LAB MD [facility] Family History Problem Relation Age of Onset Cancer Mother Atrial fibrillation Father Heart failure Father Comments: Systolic Cancer Brother Heart attack Maternal Grandfather Cancer Paternal Grandmother Cancer Paternal Grandfather Family Status - Relation Status Age at Mother Father Brother Maternal Grandfather Paternal Grandmother Paternal Grandfather Normal [facility] Prep for Procedureon 025 Prep for Procedure [id number] Ramiro Gamino 1975 M Date Provider Department Center 04/17/20241986-JOSE MARIA RAMIREZ [facility]ASC LAB MD Heart[facility] Family History Problem Relation Age of Onset Cancer Mother Atrial fibrillation Father Heart failure Father Comments: Systolic Cancer Brother Heart attack Maternal Grandfather Cancer Paternal Grandmother Cancer Paternal Grandfather Family Status - Relation Status Age at Mother Father Brother Maternal Grandfather Paternal Grandmother Paternal Grandfather Normal [facility] [place] [address] Cardiology Report Signed Patient: RAMIRO GAMINO MR#: [id number] : 1975 Acct:[id number] Age/Sex: 49 / M ADM Date: 03/21/24 Loc: CARD Attending Dr: ARIEL GUEVARA APRN Ordering Physician: ARIEL GUEVARA APRN Date of Service: 03/21/24 Procedure(s): CA echo limited Accession Number(s): [id number] cc: SERGIO HERNANDEZ ; ARIEL GUEVARA APRN Patient Name: RAMIRO GAMINO MR#: [id number] : 1975 Exam Date: 03/21/2024 Ordering Doctor: ARIEL GUEVARA [employer] ECHOCARDIOGRAM REPORT PROCEDURE: CA ECHO LIMITED INDICATIONS: Heart failure with reduced ejection fraction COMPARISON: None. DESCRIPTION: Limited ECHOCARDIOGRAM Real-time transthoracic echocardiography with 2D and M-mode performed. QUALITY: Technical quality was good. LEFT VENTRICLE: Normal chamber size. Mild concentric left ventricular hypertrophy. Systolic function is mildly reduced. Calculated left ventricular ejection fraction is 46%. LV EF: Mildly reduced left ventricular ejection fraction, (45-50%). DIASTOLIC: ATRIAL SEPTUM: LEFT ATRIUM: Mild dilatation. RIGHT ATRIUM: Mild dilatation. RIGHT VENTRICLE: Normal chamber size. Normal systolic function. TRICUSPID VALVE: Normal mobility and thickness. MITRAL VALVE: Normal mobility and thickness. There is no mitral annular calcification. AORTIC VALVE: Normal trileaflet appearance. No visible sclerosis. Normal leaflet mobility. AORTIC ROOT: Normal diameter and appearance. Ascending aorta is normal in size. PULMONIC VALVE: Normal thickness and mobility. PERICARDIUM: No evidence of pericardial effusion. IVC: IVC is dilated (2.8 cm), does not collapse. PLEURA: CONCLUSION: 1. Mild concentric ventricular hypertrophy with mildly reduced systolic function. There is global hypokinesis. Estimated LVEF is 45 to 50%. 2. Normal right ventricular size and systolic function. 3. Mild biatrial dilatation. 4. Limited study performed with no Doppler interrogation as requested. Adult Echocardiography Procedure Report Left Ventricle LVEDD (3.7 - 5.6 cm): 4.38 cm LVESD (2.2 - 4.0 cm): 3.43 cm LVIVS thickness (0.6 - 1.2 cm): 1.24 cm LVPW thickness (0.5 - 1.0 cm): 1.15 cm LVOT Diameter 2.38 cm Left Atrium LA Volume Index (2D A2C): 41.67 ml/m2 Left Atrium Systolic Dimension: 5.19 cm Mitral Valve Right Ventricle Aorta AO Root Diam: 2.98 cm Ascending Ao Diam: 2.80 cm Aortic Valve Tricuspid Valve Pulmonic Valve Right Atrium Right Atrium Systolic Pressure: 50.21 ml, 50.21 ml Dictated by: Felix Ruby M.D. on 03/21/2024 at 20:16 Approved by: Felix Ruby M.D. on 03/21/2024 at 20:18 Dictated By: FELIX RUBY Signed By: 03/21/242019 DD/ 17 TD/TT: Nightman: [facility] Radiology, Radiologi MD gabrielle - 03/21/2024 [place] [address] Cardiology Report Signed Patient: RAMIRO GAMINO MR#: [id number] : 1975 Acct:[id number] Age/Sex: 49 / M ADM Date: 03/21/24 Loc: CARD Attending Dr: ARIEL GUEVARA APRN Ordering Physician: ARIEL GUEVARA APRN Date of Service: 03/21/24 Procedure(s): CA echo limited Accession Number(s): [id number] cc: SERGIO HERNANDEZ ; ARIEL GUEVARA APRN Patient Name: RAMIRO GAMINO MR#: [id number] : 1975 Exam Date: 03/21/2024 Ordering Doctor: ARIEL GUEVARA CNP ECHOCARDIOGRAM REPORT PROCEDURE: CA ECHO LIMITED INDICATIONS: Heart failure with reduced ejection fraction COMPARISON: None. DESCRIPTION: Limited ECHOCARDIOGRAM Real-time transthoracic echocardiography with 2D and M-mode performed. QUALITY: Technical quality was good. LEFT VENTRICLE: Normal chamber size. Mild concentric left ventricular hypertrophy. Systolic function is mildly reduced. Calculated left ventricular ejection fraction is 46%. LV EF: Mildly reduced left ventricular ejection fraction, (45-50%). DIASTOLIC: ATRIAL SEPTUM: LEFT ATRIUM: Mild dilatation. RIGHT ATRIUM: Mild dilatation. RIGHT VENTRICLE: Normal chamber size. Normal systolic function. TRICUSPID VALVE: Normal mobility and thickness. MITRAL VALVE: Normal mobility and thickness. There is no mitral annular calcification. AORTIC VALVE: Normal trileaflet appearance. No visible sclerosis. Normal leaflet mobility. AORTIC ROOT: Normal diameter and appearance. Ascending aorta is normal in size. PULMONIC VALVE: Normal thickness and mobility. PERICARDIUM: No evidence of pericardial effusion. IVC: IVC is dilated (2.8 cm), does not collapse. PLEURA: CONCLUSION: 1. Mild concentric ventricular hypertrophy with mildly reduced systolic function. There is global hypokinesis. Estimated LVEF is 45 to 50%. 2. Normal right ventricular size and systolic function. 3. Mild biatrial dilatation. 4. Limited study performed with no Doppler interrogation as requested. Adult Echocardiography Procedure Report Left Ventricle LVEDD (3.7 - 5.6 cm): 4.38 cm LVESD (2.2 - 4.0 cm): 3.43 cm LVIVS thickness (0.6 - 1.2 cm): 1.24 cm LVPW thickness (0.5 - 1.0 cm): 1.15 cm LVOT Diameter 2.38 cm Left Atrium LA Volume Index (2D A2C): 41.67 ml/m2 Left Atrium Systolic Dimension: 5.19 cm Mitral Valve Right Ventricle Aorta AO Root Diam: 2.98 cm Ascending Ao Diam: 2.80 cm Aortic Valve Tricuspid Valve Pulmonic Valve Right Atrium Right Atrium Systolic Pressure: 50.21 ml, 50.21 ml Dictated by: Felix Ruby M.D. on 03/21/2024 at 20:16 Approved by: Felix Ruby M.D. on 03/21/2024 at 20:18 Dictated By: FELIX RUBY Signed By: 03/21/242019 DD/ 17 TD/TT: Nightman: [facility] Radiology Study observation (narrative) [facility] [employer] CARD ECHO LIMITED STUDYOrder ed By: Radiologist Radiology on 03-21-2024 [facility] [employer] Work Phone: Orders Onlyon 03-12-2024 Orders Only [id number] Ramiro Gamino 1975 M Date Provider Department Center 03/12/20241986-JOSE MARIA RAMIREZ [facility] VASC LAB MD HeartVAS Family History Problem Relation Age of Onset Cancer Mother Atrial fibrillation Father Heart failure Father Comments: Systolic Cancer Brother Heart attack Maternal Grandfather Cancer Paternal Grandmother Cancer Paternal Grandfather Family Status - Relation Status Age at Mother Father Brother Maternal Grandfather Paternal Grandmother Paternal Grandfather Normal [facility] BASIC METABOLIC PANELon 02-09 Anion gap [Moles/Vol] 13 mmol/L Normal 7-20 [facility] Comment on above: Performed By: #### L [id number] #### [facility] (BEAK[facility]) [address] [place] [address] Calcium [Mass/Vol] 9.7 mg/dL Normal 8.6-10.3 [facility] Comment on above: Performed By: #### L [id number] #### [facility] [address] [place] [address] Chloride [Moles/Vol] 104 mmol/L Normal 98-107 [facility] Comment on above: Performed By: #### L [id number] #### [facility] ([facility]) [address] [place] [address] CO2 [Moles/Vol] 27 mmol/L Normal 21-31 [facility] Comment on above: Performed By: #### L [id number] #### [facility] ([facility]) [address] [place] [address] Creatinine [Mass/Vol] 0.86 mg/dL Normal 0.70-1.30 [facility] Comment on above: Performed By: #### L [id number] #### [facility] ([facility]) [address] [place] [address] GLOMERULAR FILTRATION RATE ML/MIN/1.73 SQ M.PREDICTED 104.8 mL/min/1.73m*2 Normal >60.0 [facility] Comment on above: Result Comment: The [facility]???s estimated glomerular filtration rate (eGFR) will no longer include consideration of race in its calculation. The National Kidney Foundation???s eGFR Task Force developed new recommendations for the estimation of the glomerular filtration rate in the [place] They recommend immediate implementation of the new equation refit without the race variable in all laboratories because the calculation does not include race. In addition to not including race in the calculation and reporting, it included diversity in its development, and has acceptable performance characteristics and potential consequences that do not disproportionately affect any one group of individuals. Performed By: #### L [id number] #### [facility] ([facility] [address] [place] [address] Glucose [Mass/Vol] 109 mg/dL High 70-100 [facility] Comment on above: Performed By: #### L [id number] #### [facility] ([facility] [address] [place] [address] Potassium [Moles/Vol] 4.1 mmol/L Normal 3.5-5.1 [facility] Comment on above: Performed By: #### L [id number] #### [facility] ([facility]) [address] [place] [address] Sodium [Moles/Vol] 140 mmol/L Normal 136-145 [facility] Comment on above: Performed By: #### L [id number] #### [facility] ([facility]) [address] [place] [address] Urea nitrogen [Mass/Vol] 17 mg/dL Normal 7-25 [facility] Comment on above: Performed By: #### L [id number] #### [facility] ([facility]) [address] [place] [address] UREA NITROGEN/CREATININE (MASS RATIO) IN SER/PLAS 19.8 Normal [facility] Comment on above: Performed By: #### L [id number] #### [facility] ([facility]) [address] [place] [address] CBC WITH AUTO DIFFERENTIALon 03-08-2024 Basophils (Bld) [#/Vol] 0.04 10*3/uL Normal 0.00-0.20 [facility] Comment on above: Performed By: #### L [id number] #### [facility] ([facility]) [address] [place] [address] Basophils/100 WBC (Bld) 0.6 % Normal 0.0-1.0 [facility] Comment on above: Performed By: #### L [id number] #### [facility] ([facility]) [address] [place] [address] Eosinophils (Bld) [#/Vol] 0.18 10*3/uL Normal 0.00-0.50 [facility] Comment on above: Performed By: #### L [id number] #### [facility] ([facility]) [address] [place] [address] Eosinophils/100 WBC (Bld) 2.6 % Normal 0.0-6.0 [facility] Comment on above: Performed By: #### L [id number] #### [facility] [address] [place] [address] Erythrocyte distribution width (RBC) [Ratio] 12.3 % Normal 11.5-15.0 [facility] Comment on above: Performed By: #### L [id number] #### [facility] ([facility]) [address] [place] [address] ERYTHROCYTE MEAN CORPUSCULAR HEMOGLOBIN CONCENTRATION (G/DL) BY AUTOMATED 34.4 g/dL Normal 32.0-35.0 [facility] Comment on above: Performed By: #### L [id number] #### [facility] ([facility]) [address] [place] [address] Hematocrit (Bld) [Volume fraction] 44.5 % Normal 39.0-55.0 [facility] Comment on above: Performed By: #### L [id number] #### [facility] ([facility]) [address] [place] [address] Hemoglobin (Bld) [Mass/Vol] 15.3 g/dL Normal 13.0-17.0 [facility] Comment on above: Performed By: #### L [id number] #### [facility] ([facility]) [address] [place] [place] [address] Immature granulocytes (Bld) [#/Vol] 0.02 10*3/uL Normal 0.00-0.20 [facility] Comment on above: Performed By: #### L [id number] #### [facility] ([facility] [address] [place] [address] Immature granulocytes/100 WBC (Bld) 0.3 % Normal 0.0-1.0 [facility] Comment on above: Performed By: #### L [id number] #### [facility] ([facility] [address] [place] [address] Lymphocytes (Bld) [#/Vol] 2.58 10*3/uL Normal 1.20-4.00 [facility] Comment on above: Performed By: #### L [id number] #### [facility] ([facility]) [address] [place] [address] Lymphocytes/100 WBC (Bld) 37.6 % Normal 20.0-45.0 [facility] Comment on above: Performed By: #### L [id number] #### [facility] ([facility]) [address] [place] [address] MCH (RBC) [Entitic mass] 30.9 pg Normal 27.0-33.0 [facility] Comment on above: Performed By: #### L [id number] #### [facility] ([facility]) [address] [place] [address] MCV (RBC) [Entitic vol] 89.9 fL Normal 82.0-98.0 [facility] Comment on above: Performed By: #### L [id number] #### [facility] ([facility] [address] [place] [address] Monocytes (Bld) [#/Vol] 0.71 10*3/uL Normal 0.10-1.00 [facility] Comment on above: Performed By: #### L [id number] #### [facility] ([facility]) [address] [place] [address] Monocytes/100 WBC (Bld) 10.3 % Normal 5.0-12.0 [facility] Comment on above: Performed By: #### L [id number] #### [facility] ([facility]) [address] [place] [address] Neutrophils (Bld) [#/Vol] 3.34 10*3/uL Normal 1.60-7.60 [facility] Comment on above: Performed By: #### L [id number] #### [facility] ([facility]) [address] [place] [address] Neutrophils/100 WBC (Bld) 48.6 % Normal 40.0-72.0 [facility] Comment on above: Performed By: #### L [id number] #### [facility] ([facility]) [address] [place] [address] NRBC (PER 100 WBCS) BY AUTOMATED COUNT 0.0 % Normal 0 [facility] Comment on above: Performed By: #### L [id number] #### [facility] ([facility]) [address] [place] [address] PLATELETS (10*3/UL) IN BLOOD AUTOMATED COUNT 225 10*3/uL Normal 150-400 [facility] Comment on above: Performed By: #### L [id number] #### [facility] ([facility]) [address] [place] [address] RBC (Bld) [#/Vol] 4.95 10*6/uL Normal 4.20-5.70 [facility] Comment on above: Performed By: #### L [id number] #### [facility] ([facility]) [address] [place] [address] WBC (Bld) [#/Vol] 6.87 10*3/uL Normal 4.00-10.60 [facility] Comment on above: Performed By: #### L [id number] #### [facility] ([facility]) [address] [place] [address] Labon 03-08-2024 Lab [id number] Ramiro Gamino 1975 M Provider Department Center 03/08/2024 2245-[facility] OPD LAB RESOURCE [facility] OPD MD Medical C Family History Problem Relation Age of Onset Cancer Mother Atrial fibrillation Father Heart failure Father Comments: Systolic Cancer Brother Heart attack Maternal Grandfather Cancer Paternal Grandmother Cancer Paternal Grandfather Family Status - Relation Status Age at Mother Father Brother Maternal Grandfather Paternal Grandmother Paternal Grandfather Normal [facility] Office Visiton 03-08-2024 Follow-up visit [id number] Ramiro Gamino 1975 M Date Provider Department Center 03/08/2024 JAVIER ZHAO [facility] CARD UT HeartVAS Family History Problem Relation Age of Onset Cancer Mother Atrial fibrillation Father Heart failure Father Comments: Systolic Cancer Brother Heart attack Maternal Grandfather Cancer Paternal Grandmother Cancer Paternal Grandfather Family Status - Relation Status Age at Mother Father Brother Maternal Grandfather Paternal Grandmother Paternal Grandfather Level of Service:95510 [place] OFFICE/OUTPATIENT [facility] 60 MINUTES [facility] Orders Onlyon 03-08-2024 Orders Only [id number] JaimejeronimosaiRamiro Rouse 1975 Provider Department Center 03/08/20241986-JOSE MARIA RAMIREZ [facility] VASC LAB MD HeartVAS Family History Problem Relation Age of Onset Cancer Mother Atrial fibrillation Father Heart failure Father Comments: Systolic Cancer Brother Heart attack Maternal Grandfather Cancer Paternal Grandmother Cancer Paternal Grandfather Family Status - Relation Status Age at Mother Father Brother Maternal Grandfather Paternal Grandmother Paternal Grandfather [facility] Prep for Procedureon 025 Prep for Procedure [id number] Ramiro Gamino 1975 Provider Department Center 03/07/20241986-JOSE MARIA RAMIREZ [facility] VASC LAB MD HeartVAS Family History Problem Relation Age of Onset Cancer Mother Atrial fibrillation Father Heart failure Father Comments: Systolic Cancer Brother Heart attack Maternal Grandfather Cancer Paternal Grandmother Cancer Paternal Grandfather Family Status - Relation Status Age at Mother Father Brother Maternal Grandfather Paternal Grandmother Paternal Grandfather [facility] 36on 03-01-2024 36 Patient informed via [email or web address] message. Orders entered. [facility] 36on 02-29-2024 36 Patient called ceci perrin he believes he went back into afib over the weekend. His watch is also telling him. He'd like to know what the next steps are. Please let me know what you need and I will relay to him. Thanks. [facility] Office Visiton 02-14-2024 Follow-up visit [id number] Ramiro Gamino 1975 Provider Department Center 02/14/2024 [facility]EL SOL[facility] Family History Problem Relation Age of Onset Cancer Mother Atrial fibrillation Father Heart failure Father Comments: Systolic Cancer Brother Heart attack Maternal Grandfather Cancer Paternal Grandmother Cancer Paternal Grandfather Family Status - Relation Status Age at Mother Father Brother Maternal Grandfather Paternal Grandmother Paternal Grandfather Level of Service:00675 [place] OFFICE/OUTPATIENT ESTABLISHED MOD MDM 30 MIN Reason for Visit and Comments: Congestive Heart Failure [127] Atrial Fibrillation [80] Hypertension [129025] Normal [facility] ANESon 01-25-2024 ANES --- Attestation signed by Javier Moya MD at 02/07/2024 9:18 PM By using the attestations below, the signing clinician agrees that I have read and verify that the documentation has been personally reviewed by me and ensure that the documentation accurately reflects the encounter. GC: I performed the rios portion(s) of the service and participated in the management and confirm the resident's documentation. Please note there may be an additional personal documentation from me. Patient: Ramior Gamino Procedure Information Date/Time: 01/25/24 1310 Procedure: Cardioversion - PC APPROVED Location: [facility] MANAGER BUSINESS OPERATIONS HOLDING ROOM / [facility]ASCULAR LAB (Cath) Providers: Javier Moya MD Clinical information reviewed: Allergies Meds Physical Exam Airway Mallampati: III Cardiovascular Rhythm: irregular Dental Pulmonary Abdominal Anesthesia Plan ASA 3 other (Conscious sedation. ) Additional Equipment Requests Normal [facility] BASIC METABOLIC PANELon 01-07 Anion gap [Moles/Vol] 13 mmol/L Normal 7-20 [facility] Comment on above: Performed By: #### L [id number] ####[facility] ([facility]AKER)[address] [place] [address] Calcium [Mass/Vol] 10.1 mg/dL Normal 8.6-10.3 [facility] Comment on above: Performed By: #### L [id number] ####[facility] ([facility])[address] [place] [address] Chloride [Moles/Vol] 106 mmol/L Normal 98-107 [facility] Comment on above: Performed By: #### L [id number] ####[facility] ([facility])[address] [place] [address] CO2 [Moles/Vol] 25 mmol/L Normal 21-31 [facility] Comment on above: Performed By: #### L [id number] ####[facility] ([facility])[address] [place] [address] Creatinine [Mass/Vol] 0.94 mg/dL Normal 0.70-1.30 [facility] Comment on above: Performed By: #### L [id number] ####[facility] ([facility])[address] [place] [address] GLOMERULAR FILTRATION RATE ML/MIN/1.73 SQ M.PREDICTED 98.8 mL/min/1.73m*2 Normal >60.0 [facility] Comment on above: Result Comment: The [facility]???s estimated glomerular filtration rate (eGFR) will no longer include consideration of race in its calculation. The National Kidney Foundation???s eGFR Task Force developed new recommendations for the estimation of the glomerular filtration rate in the [place] They recommend immediate implementation of the new equation refit without the race variable in all laboratories because the calculation does not include race. In addition to not including race in the calculation and reporting, it included diversity in its development, and has acceptable performance characteristics and potential consequences that do not disproportionately affect any one group of individuals. Performed By: #### L [id number] ####[facility] ([facility])[address] [place] [address] Glucose [Mass/Vol] 119 mg/dL High 70-100 [facility] Comment on above: Performed By: #### L [id number] ####[facility] (BEAKER)[address] [place] [address] Potassium [Moles/Vol] 4.3 mmol/L Normal 3.5-5.1 [facility] Comment on above: Performed By: #### L [id number] ####[facility] (BEAKER)[address] [place] [address] Sodium [Moles/Vol] 140 mmol/L Normal 136-145 [facility] Comment on above: Performed By: #### L [id number] ####[facility] [place] [address] Urea nitrogen [Mass/Vol] 16 mg/dL Normal 7-25 [facility] Comment on above: Performed By: #### L [id number] ####[facility] ([facility] [place] [address] UREA NITROGEN/CREATININE (MASS RATIO) IN SER/PLAS 17.0 Normal [facility] Comment on above: Performed By: #### L [id number] ####[facility] [place] [address] CBCon 01-25-2024 Erythrocyte distribution width (RBC) [Ratio] 12.4 % Normal 11.5-15.0 [facility] Comment on above: Performed By: #### L [id number] #### [facility] ([facility] [address] [place] [address] ERYTHROCYTE MEAN CORPUSCULAR HEMOGLOBIN CONCENTRATION (G/DL) BY AUTOMATED 33.7 g/dL Normal 32.0-35.0 [facility] Comment on above: Performed By: #### L [id number] #### [facility] (BEAKER) [address] [place] [address] Hematocrit (Bld) [Volume fraction] 46.9 % Normal 39.0-55.0 [facility] Comment on above: Performed By: #### L [id number] #### [facility] (BEAKER) [address] [place] [address] Hemoglobin (Bld) [Mass/Vol] 15.8 g/dL Normal 13.0-17.0 [facility] Comment on above: Performed By: #### L [id number] #### [facility] ([facility]) [address] [place] [address] MCH (RBC) [Entitic mass] 31.0 pg Normal 27.0-33.0 [facility] Comment on above: Performed By: #### L [id number] #### [facility] ([facility]) [address] [place] [address] MCV (RBC) [Entitic vol] 92.1 fL Normal 82.0-98.0 [facility] Comment on above: Performed By: #### L [id number] #### [facility] ([facility]) [address] [place] [address] PLATELETS (10*3/UL) IN BLOOD AUTOMATED COUNT 248 10*3/uL Normal 150-400 [facility] Comment on above: Performed By: #### L [id number] #### [facility] ([facility]) [address] [place] [address] RBC (Bld) [#/Vol] 5.09 10*6/uL Normal 4.20-5.70 [facility] Comment on above: Performed By: #### L [id number] #### [facility] ([facility]) [address] [place] [address] WBC (Bld) [#/Vol] 7.78 10*3/uL Normal 4.00-10.60 [facility] Comment on above: Performed By: #### L [id number] #### [facility] ([facility]) [address] [place] [address] [facility] 01-25-2024 --- Attestation signed by Javier Moya MD at 02/07/2024 9:18 PM By using the attestations below, the signing clinician agrees that I have read and verify that the documentation has been personally reviewed by me and ensure that the documentation accurately reflects the encounter. GC: I performed the rios portion(s) of the service and participated in the management and confirm the resident's documentation. Please note there may be an additional personal documentation from me. H&P reviewed. The patient was examined and there are no changes to the H&P. Will proceed with ERYN and cardioversion. Procedure was explained to patient at length and in detail. Risks, benefits, and alternatives were discussed. Patient is informed that risks of this invasive procedure include, but are not limited to, bleeding, hematoma, kidney injury, CVA, arrythmia requiring defibrillation, need for emergent open heart surgery, and . Patient understands these risks and wishes to proceed. Starr Zacarias MD PGY-6 Label Designer [facility] Muna 01-25-2024 NURSNOTE RN educated pt on d/ c instructions. This included: site care, limited physical activity, resume normal diet, future appointments, medications, and moderate sedation instructions. RN educated pt on when to notify physician and when to go to the hospital. RN encouraged pt to voice any questions or concerns, and answered any questions or concerns if pt verbalized. Pt was wheeled off of unit with all of belongings. [facility] HPon 01-04-[address] [facility] SUBJECTIVE Chief Complaint Patient presents with Congestive Heart Failure Hypertension Hyperlipidemia Atrial Fibrillation Ramiro Gamino is a 48 y.o. male here for follow-up. HPI PMHx: HFimpEF, HTN, YUE, HLD Patient here c/o elevated BP's and palpitations. Today was 151/105 before medications. 140/104 is what it was 3 hours after medications. C/o VOGT. Denies chest pain. No recent labs/imaging. 2-3 weeks ago he noticed palpitations when he was laying down. [place] like quivering in his chest and a fast HR. He thought this was maybe due to stress. Yesterday he noticed increased shortness of breath with exertion. He reports having gradual weight gain Denies CP, orthopnea, PND, LE edema, dizziness/LH, syncope. Patient Active Problem List Diagnosis Acute on chronic systolic heart failure, NYHA class 2 (CMS/HCC) Heart disease, hypertensive, with heart failure (CMS/HCC) YUE (obstructive sleep apnea) Dyspnea Edema Hypertensive disorder Mixed hyperlipidemia Systolic heart failure (CMS/HCC) Obstructive sleep apnea syndrome Gout Impaired fasting glucose Insomnia Male hypogonadism Peripheral neuropathic pain Adjustment disorder with depressed mood Body mass index (BMI) 35.0-35.9, adult Elevated liver function tests Encounter for well adult exam with abnormal findings Family history of pancreatic cancer Fatty liver, alcoholic Morbid (severe) obesity due to excess calories (CMS/HCC) Weight gain Paroxysmal atrial fibrillation (CMS/HCC) Past Medical History: Diagnosis Date CHF (congestive heart failure) (CMS/HCC) Hyperlipidemia Hypertension Sleep apnea Family History Problem Relation Name Age of Onset Atrial fibrillation Father Heart attack Maternal Grandfather Social History Tobacco Use Smoking status: Never Smokeless tobacco: Never Substance Use Topics Alcohol use: Yes Comment: moderate No Known Allergies ROS Constitutional: Positive for weight gain (31# since May 2023). Cardiovascular: Positive for dyspnea on exertion and palpitations. All other systems reviewed and are negative. OBJECTIVE Visit Vitals BP 128/76 (BP Location: Left arm, Patient Position: Sitting) Pulse 106 Ht 1.88 m (6' 2 ) Wt 136 kg (299 lb) SpO2 96% BMI 38.39 kg/m??? Smoking Status Never BSA 2.66 m??? Medications: Current Outpatient Medications: aspirin 81 mg EC tablet, in the morning., Disp: , Rfl: atorvastatin (Lipitor) 40 mg tablet, Take 1 tablet (40 mg) by mouth in the morning., Disp: 90 tablet, Rfl: 3 dapagliflozin propanediol (Farxiga) 5 mg, Take 1 tablet (5 mg) by mouth in the morning., Disp: 90 tablet, Rfl: 3 DULoxetine (Cymbalta) [address] capsule, Take 60 mg by mouth in the morning., Disp: , Rfl: furosemide (Lasix) 40 mg tablet, Take 1 tablet (40 mg) by mouth in the morning., Disp: 90 tablet, Rfl: 3 lisinopril 20 mg tablet, Take 1 tablet (20 mg) by mouth in the morning., Disp: 90 tablet, Rfl: 3 apixaban (Eliquis) 5 mg tablet, Take 1 tablet (5 mg) by mouth two times daily., Disp: 180 tablet, Rfl: 3 metoprolol succinate XL (Toprol-XL) 100 mg 24 hr tablet, Take 1 tablet (100 mg) by mouth once daily as directed. Do not crush or chew., Disp: 90 tablet, Rfl: 3 Physical Exam Constitutional: Appearance: Normal appearance. He is normal weight. HENT: Head: Normocephalic and atraumatic. Right Ear: External ear normal. Left Ear: External ear normal. Eyes: Extraocular Movements: Extraocular movements intact. Pupils: Pupils are equal, round, and reactive to light. Neck: Vascular: No carotid bruit. Cardiovascular: Rate and Rhythm: Normal rate. Rhythm irregular. Pulses: Normal pulses. Heart sounds: Normal heart sounds. Pulmonary: Effort: Pulmonary effort is normal. Breath sounds: Normal breath sounds. Abdominal: General: Bowel sounds are normal. Palpations: Abdomen is soft. Musculoskeletal: General: Normal range of motion. Cervical back: Neck supple. Right lower leg: No edema. Left lower leg: No edema. Skin: General: Skin is warm and dry. Neurological: General: No focal deficit present. Mental Status: He is alert and oriented to person, place, and time. Psychiatric: Mood and Affect: Mood normal. Behavior: Behavior normal. Thought Content: Thought content normal. Judgment: Judgment normal. Labs: Legacy Encounter on 08/03/2018 Component Date Value Ref Range Status Auto WBC 08/03/2018 8.02 4.00 - 10.60 10*3/uL Final RBC 08/03/2018 4.58 4.20 - 5.70 10*6/uL Final Hemoglobin 08/03/2018 14.5 13.0 - 17.0 g/dL Final Hematocrit 08/03/2018 41.9 39.0 - 50.0 % Final MCV 08/03/2018 91.5 82.0 - 98.0 fL Final MCH 08/03/2018 31.7 27.0 - 33.0 pg Final MCHC 08/03/2018 34.6 32.0 - 35.0 g/dL Final RDW 08/03/2018 12.2 11.5 - 15.0 % Final Platelets 08/03/2018 215 150 - 400 10*3/uL Final Immature Platelet Fraction 08/03/2018 11.7 (H) 0.8 - 6.3 % Final N (more content not included)... Normal [facility] Office Visiton 01-04-2024 Follow-up visit [id number] Ramiro Gamino 1975 M Date Provider Department Center 01/04/2024 ARIEL SOLIMAN ROBERTH [facility] Family History Problem Relation Age of Onset Atrial fibrillation Father Heart attack Maternal Grandfather Family Status - Relation Status Age at Father Maternal Grandfather Level of Service:78312 [place] OFFICE/OUTPATIENT ESTABLISHED MOD MDM 30 MIN Reason for Visit and Comments: Congestive Heart Failure [127] Hypertension [544503] Hyperlipidemia [182] Atrial Fibrillation [80] Normal [facility] Office Visiton 05-27-2023 Follow-up visit [id number] Ramiro Gamino 1975 M Date Provider Department Center 05/27/2023 FELIX GOODSON ROBERTH [facility] Family History Problem Relation Age of Onset Atrial fibrillation Father Heart attack Maternal Grandfather Family Status - Relation Status Age at Father Maternal Grandfather Level of Service:78959 [place] OFFICE/OUTPATIENT ESTABLISHED LOW MDM 20 MIN Reason for Visit and Comments: Follow-up [721916] - 6 month follow up [facility] ECHOCARDIO M/2D COMPLETEon 0 04-08-2022 ECHOCARDIO M/2D COMPLETE Patient: RAMIRO GAMINO Exam Date: 04/08/2022 : 1975 Gender:M Ordering : CHRISTOPH COOK Admission #: [id number] Family : Order #: [id number] CLICK HERE TO VIEW EXAM ECHOCARDIOGRAM REPORT PROCEDURE: CARDIO PULMONARY ECHOCARDIO M/2D COMP INDICATIONS: Chronic systolic heart failure COMPARISON: None. DESCRIPTION: COMPLETE ECHOCARDIOGRAM Real-time transthoracic echocardiography with 2D, M-mode, spectral and color flow Doppler performed. QUALITY: Technical quality was adequate. LEFT VENTRICLE: Normal chamber size. Mild concentric left ventricular hypertrophy. Abnormal septal motion is seen. Global left ventricular systolic function is normal. LV EF: Visual estimation of left ventricular ejection fraction is 55-60% DIASTOLIC: ATRIAL SEPTUM: LEFT ATRIUM: Mild dilatation. RIGHT ATRIUM: Mild dilatation. RIGHT VENTRICLE: The right ventricle appears mildly dilated with mildly reduced systolic function. TRICUSPID VALVE: Normal mobility and thickness. No stenosis with trivial regurgitation. No evidence of pulmonary hypertension. Unable to assess right-sided pressures due to lack of measurable tricuspid regurgitation. MITRAL VALVE: Normal mobility and thickness. No mitral valve prolapse. No evidence of mitral valve stenosis. There is no mitral annular calcification. Trivial mitral regurgitation. AORTIC VALVE: Normal trileaflet appearance. No visible sclerosis. Normal leaflet mobility. No evidence of aortic valve stenosis. No aortic regurgitation. AORTIC ROOT: Normal diameter and appearance. PULMONIC VALVE: Normal thickness and mobility. No stenosis. No regurgitation. PERICARDIUM: No evidence of pericardial effusion. IVC: Dilated measuring 2.5 cm with no inspiratory collapse. PLEURA: CONCLUSION: 1. The left ventricle exhibits mild concentric hypertrophy with normal systolic function. Abnormal septal motion is seen. LV ejection fraction is 55 to 60%. 2. The right ventricle appears to be mildly dilated with mildly reduced systolic function. 3. Mild biatrial dilatation. 4. No significant valvular dysfunction. 5. The IVC is dilated with no inspiratory collapse suggesting elevated right atrial pressure. Adult Echocardiography Procedure Report Left Ventricle LVEDD (3.7 - 5.6 cm): 4.96 cm LVESD (2.2 - 4.0 cm): 3.24 cm LVIVS thickness (0.6 - 1.2 cm): 1.38 cm LVPW thickness (0.5 - 1.0 cm): 1.28 cm LVOT Max Gradient: 4 mm[Hg] Peak Velocity (LVOT): 97.20 cm/s LVOT Diameter 2.00 cm Left Ventricular Ejection Fraction: 55-60 % Left Atrium Mitral Valve MV E to A Ratio: 2.10 Mitral Valve A-Wave Peak Velocity: 42.40 cm/s Mitral Valve E-Wave Peak Velocity: 88.40 cm/s Right Ventricle Aorta AO Root Diam: 2.90 cm Aortic Valve AoV Area (Peak Roque): 3.05 cm2 Peak Velocity(Antegrade Flow): 100.00 cm/s Peak Gradient(Antegrade Flow): 4 mm[Hg] Tricuspid Valve Peak Velocity (Regurgitant Flow): 217.00 cm/s Peak Velocity: 61.70 cm/s Pulmonic Valve Peak Velocity: 78.70 cm/s, 90.90 cm/s Peak Gradient: 3 mm[Hg] Right Atrium Dictated by: Felix Ruby M.D. on 04/08/2022 at 09:50 Approved by: Felix Ruby M.D. on 04/08/2022 at 09:[address] [facility] LIPID PROFILEon 04-08-2022 CHOL-HDL RATIO NORM SEE BELOW Normal [facility] Comment on above: Result Comment: 3.3 - 4.4 LOW RISK 4.4 - 7.1 AVERAGE RISK 7.1 - 11.0 MODERATE RISK >11.0 HIGH RISK Performed By: #### B MP, LIPID #### [facility] [address] [address] [address] Christin Grier Cholesterol [Mass/Vol] 79 mg/dL Normal <=200 [facility] Comment on above: Performed By: #### B MP, LIPID #### [facility] [address] [address] [address] Christin Grier Cholesterol in HDL [Mass/Vol] 34 mg/dL Critically low 40-60 [facility] Comment on above: Performed By: #### B MP, LIPID #### [facility] [address] [address] [address] Christin Grier Cholesterol in LDL [Mass/Vol] 30.2 mg/dL Normal [facility] Comment on above: Performed By: #### B MP, LIPID #### [facility] [address] [address] [address] Christin Grier Cholesterol.total/C holesterol in HDL [Mass ratio] 2.3 {ratio} Normal [facility] Comment on above: Performed By: #### B MP, LIPID #### [facility] [address] [address] [address] Christin Grier HDL NORMAL > or = 60 mg/dl - LO W CARDIOVASCULAR RISK <40 mg/dl - HIGH CARDIOVASCULAR RISK Normal [facility] Comment on above: Performed By: #### B MP, LIPID #### [facility] [address] [address] [address] Christin Grier LDL CALC NORMAL SEE BELOW Normal [facility] Comment on above: Result Comment: <100 mg/dl OPTIMAL 100 - 129 mg/dl NEAR OR ABOVE OPTIMAL 130 - 159 mg/dl BORDERLINE HIGH 160 - 189 mg/dl HIGH >190 mg/dl VERY HIGH Performed By: #### B MP, LIPID #### [facility] [address] [address] [address] Christin Grier Triglyceride [Mass/Vol] 74 mg/dL Normal <=150 [facility] Comment on above: Performed By: #### B MP, LIPID #### [facility] [address] [address] [address] Christin Grier VLDL CALC 14.8 mg/dL Normal [facility] Comment on above: Performed By: #### B MP, LIPID #### [facility] [address] [place] [address] Dr. Christin Grier PROF CHEM 8 (BAS METB)on Anion gap [Moles/Vol] 9.1 mmol/L Normal [facility] Comment on above: Performed By: #### B MP, LIPID #### [facility] [address] [place] [address] Dr. Christin Grier Calcium [Mass/Vol] 9.5 mg/dL Normal 8.5-10.1 [facility] Comment on above: Performed By: #### B MP, LIPID #### [facility] [address] [place] [address] Dr. Christin Grier Chloride [Moles/Vol] 107 mmol/L Normal 98-107 [facility] Comment on above: Performed By: #### B MP, LIPID #### [facility] [address] [place] [address] Dr. Christin Grier CO2 [Moles/Vol] 31.1 mmol/L Normal 21.0-32.0 [facility] Comment on above: Performed By: #### B MP, LIPID #### [facility] [address] [place] [address] Dr. Christin Grier Creatinine [Mass/Vol] 1.17 mg/dL Normal 0.70-1.30 [facility] Comment on above: Performed By: #### B MP, LIPID #### [facility] [address] [place] [address] Dr. Christin Grier EGFR-AF [place] >60 Normal >=60 [facility] Comment on above: Performed By: #### B MP, LIPID #### [facility] [address] [address] [address] Christin Grier EGFR-NON AF [place] >60 Normal >=60 [facility] Comment on above: Performed By: #### B MP, LIPID #### [facility] [address] [place] [address] Dr. Christin Grier Glucose [Mass/Vol] 119 mg/dL Critically high 74-106 [facility] Comment on above: Performed By: #### B MP, LIPID #### [facility] [address] [place] [address] Dr. Christin Grier Potassium [Moles/Vol] 4.2 mmol/L Normal 3.5-5.1 [facility] Comment on above: Performed By: #### B MP, LIPID #### [facility] [address] [place] [address] Dr. Christin Grier Sodium [Moles/Vol] 143 mmol/L Normal 136-145 [facility] Comment on above: Performed By: #### B MP, LIPID #### [facility] [address] [place] [address] Dr. Christin Grier Urea nitrogen [Mass/Vol] 26.0 mg/dL Critically high 7.0-18.0 [facility] Comment on above: Performed By: #### B MP, LIPID #### [facility] [address] [place] [address] Dr. Christin Grier Urea nitrogen/Creatinine [Mass ratio] 22.2 mg/mg Normal [facility] Comment on above: Performed By: #### B MP, LIPID #### [facility] [address] [place] [address] Dr. Christin Grier BNPon 04-02-2022 Natriuretic peptide B (Bld) [Mass/Vol] 96.0 pg/mL Normal <=900.0 [facility] Comment on above: Performed By: #### B ASSISTANT PRESS OPERATOR OFFSET, CMP #### [facility] [address] [place] [address] Dr. Christin Grier CBC AUTO DIFFon 04-02-2022 BASO # 0.0 103/ul Normal 0.0-0.1 [facility] Comment on above: Performed By: #### C BC #### [facility] [address] [place] [address] Dr. Christin Grier Basophils/100 WBC (Bld) 0.4 % Normal 0.2-2.0 [facility] Comment on above: Performed By: #### C BC #### [facility] [address] [place] [address] Dr. Christin Grier EO # 0.2 103/ul Normal 0.0-0.7 [facility] Comment on above: Performed By: #### C BC #### [facility] [address] [place] [address] Dr. Christin Grier Eosinophils/100 WBC (Bld) 2.0 % Normal 0.9-7.0 [facility] Comment on above: Performed By: #### C BC #### [facility] [address] [place] [address] Dr. Christin Girer Erythrocyte distribution width (RBC) [Ratio] 12.3 % Normal 11.0-15.0 [facility] Comment on above: Performed By: #### C BC #### [facility] [address] [place] [address] Dr. Christin Grier Hematocrit (Bld) [Volume fraction] 45.7 % Normal 42.0-54.0 [facility] Comment on above: Performed By: #### C BC #### [facility] [address] [place] [address] Dr. Christin Grier Hemoglobin (Bld) [Mass/Vol] 15.2 g/dL Normal 14.0-18.0 [facility] Comment on above: Performed By: #### C BC #### [facility] [address] [address] [address] Christin Grier IG # 0.02 10e3/ul Normal 0.00-0.03 [facility] Comment on above: Performed By: #### C BC #### [facility] [address] [address] [address] Christin Grier IG % 0.3 % Normal 0.0-0.5 [facility] Comment on above: Performed By: #### C BC #### [facility] [address] [place] [address] Dr. Christin Grier LYMPH # 1.5 103/ul Normal 1.2-3.8 [facility] Comment on above: Performed By: #### C BC #### [facility] [address] [place] [address] Dr. Christin Grier Lymphocytes/100 WBC (Bld) 19.5 % Critically low 20.5-60.0 [facility] Comment on above: Performed By: #### C BC #### [facility] [address] [place] [address] Dr. Christin Grier MANUAL DIFF REQ NO Normal [facility] Comment on above: Performed By: #### C BC #### [facility] [address] [place] [address] Dr. Christin Grier MCH (RBC) [Entitic mass] 30.5 pg Normal 25.9-34.0 [facility] Comment on above: Performed By: #### C BC #### [facility] [address] [place] [address] Dr. Christin Grier MCHC (RBC) [Mass/Vol] 33.3 g/dL Normal 29.9-35.2 [facility] Comment on above: Performed By: #### C BC #### [facility] [address] [place] [address] Dr. Christin Grier MCV (RBC) [Entitic vol] 91.8 fL Normal 80.0-94.0 [facility] Comment on above: Performed By: #### C BC #### [facility] [address] [place] [address] Dr. Christin Grier MONO # 0.6 103/ul Normal 0.3-0.8 [facility] Comment on above: Performed By: #### C BC #### [facility] [address] [place] [address] Dr. Christin Grier Monocytes/100 WBC (Bld) 7.9 % Normal 1.7-12.0 [facility] Comment on above: Performed By: #### C BC #### [facility] [address] [place] [address] Dr. Christin Grier NEUT # 5.5 103/ul Normal 1.4-6.5 [facility] Comment on above: Performed By: #### C BC #### [facility] [address] [place] [address] Dr. Christin Grier Neutrophils/100 WBC (Bld) 69.9 % Normal 43.0-75.0 [facility] Comment on above: Performed By: #### C BC #### [facility] [address] [place] [address] Dr. Christin Grier Platelet mean volume (Bld) [Entitic vol] 12.4 fL Normal 9.5-13.5 [facility] Comment on above: Performed By: #### C BC #### [facility] [address] [place] [address] Dr. Christin Grier PLT 254 103/ul Normal 150-450 [facility] Comment on above: Performed By: #### C BC #### [facility] [address] [place] [address] Dr. Christin Grier RBC 4.98 106/ul Normal 4.70-6.10 [facility] Comment on above: Performed By: #### C BC #### [facility] [address] [place] [address] Dr. Christin Grier WBC 7.9 103/ul Normal 4.0-11.0 [facility] Comment on above: Performed By: #### C BC #### [facility] [address] [place] [address] Dr. Christin Grier PROF 14(COMP METB)on 023 Albumin [Mass/Vol] 4.4 g/dL Normal 3.4-5.0 [facility] Comment on above: Performed By: #### B ASSISTANT PRESS OPERATOR OFFSET, CMP #### [facility] [address] [place] [address] Dr. Christin Grier Albumin/Globulin [Mass ratio] 1.3 {ratio} Normal [facility] Comment on above: Performed By: #### B ASSISTANT PRESS OPERATOR OFFSET, CMP #### [facility] [address] [address] [address] Christin Grier ALP [Catalytic activity/Vol] 139 U/L Critically high 46-116 [facility] Comment on above: Performed By: #### B ASSISTANT PRESS OPERATOR OFFSET, CMP #### [facility] [address] [place] [address] Dr. Christin Grier ALT [Catalytic activity/Vol] 44 U/L Normal 16-63 [facility] Comment on above: Performed By: #### B ASSISTANT PRESS OPERATOR OFFSET, CMP #### [facility] [address] [place] [address] Dr. Christin Grier Anion gap [Moles/Vol] 14.9 mmol/L Normal [facility] Comment on above: Performed By: #### B ASSISTANT PRESS OPERATOR OFFSET, CMP #### [facility] [address] [place] [address] Dr. Christin Grier AST [Catalytic activity/Vol] 28 U/L Normal 15-37 [facility] Comment on above: Performed By: #### B ASSISTANT PRESS OPERATOR OFFSET, CMP #### [facility] [address] [place] [address] Dr. Christin Grier Bilirubin [Mass/Vol] 3.2 mg/dL Critically high 0.2-1.0 [facility] Comment on above: Performed By: #### B ASSISTANT PRESS OPERATOR OFFSET, CMP #### [facility] [address] [place] [address] Dr. Christin Grier Calcium [Mass/Vol] 9.6 mg/dL Normal 8.5-10.1 [facility] Comment on above: Performed By: #### B ASSISTANT PRESS OPERATOR OFFSET, CMP #### [facility] [address] [place] [address] Dr. Christin Grier Chloride [Moles/Vol] 103 mmol/L Normal 98-107 [facility] Comment on above: Performed By: #### B ASSISTANT PRESS OPERATOR OFFSET, CMP #### [facility] [address] [place] [address] Dr. Christin Grier CO2 [Moles/Vol] 26.3 mmol/L Normal 21.0-32.0 [facility] Comment on above: Performed By: #### B ASSISTANT PRESS OPERATOR OFFSET, CMP #### [facility] [address] [place] [address] Dr. Christin Grier Creatinine [Mass/Vol] 1.11 mg/dL Normal 0.70-1.30 [facility] Comment on above: Performed By: #### B ASSISTANT PRESS OPERATOR OFFSET, CMP #### [facility] [address] [place] [address] Dr. Christin Grier EGFR-AF [place] >60 Normal >=60 [facility] Comment on above: Performed By: #### B ASSISTANT PRESS OPERATOR OFFSET, CMP #### [facility] [address] [place] [address] Dr. Christin Grier EGFR-NON AF [place] >60 Normal >=60 [facility] Comment on above: Performed By: #### B ASSISTANT PRESS OPERATOR OFFSET, CMP #### [facility] [address] [place] [address] Dr. Christin Grier Globulin (S) [Mass/Vol] 3.5 g/dL Normal [facility] Comment on above: Performed By: #### B ASSISTANT PRESS OPERATOR OFFSET, CMP #### [facility] [address] [place] [address] Dr. Christin Grier Glucose [Mass/Vol] 124 mg/dL Critically high 74-106 [facility] Comment on above: Performed By: #### B ASSISTANT PRESS OPERATOR OFFSET, CMP #### [facility] [address] [place] [address] Dr. Christin Grier Potassium [Moles/Vol] 4.2 mmol/L Normal 3.5-5.1 [facility] Comment on above: Performed By: #### B ASSISTANT PRESS OPERATOR OFFSET, CMP #### [facility] [address] [place] [address] Dr. Christin Grier Protein [Mass/Vol] 7.9 g/dL Normal 6.4-8.2 [facility] Comment on above: Performed By: #### B ASSISTANT PRESS OPERATOR OFFSET, CMP #### [facility] [address] [address] [address] Christin Grier Sodium [Moles/Vol] 140 mmol/L Normal 136-145 [facility] Comment on above: Performed By: #### B ASSISTANT PRESS OPERATOR OFFSET, CMP #### [facility] [address] [address] [address] Christin Grier Urea nitrogen [Mass/Vol] 18.0 mg/dL Normal 7.0-18.0 [facility] Comment on above: Performed By: #### B ASSISTANT PRESS OPERATOR OFFSET, CMP #### [facility] [address] [address] [address] Christin Grier Urea nitrogen/Creatinine [Mass ratio] 16.2 mg/mg Normal [facility] Comment on above: Performed By: #### B ASSISTANT PRESS OPERATOR OFFSET, CMP #### [facility] [address] [address] [address] Christin Grier Cardiovascular Lab Reporton 08-04-2018 Cardiovascular Lab Report [facility] Patient Name: [facility] Ramiro Rouse MR #: [id number] Department of Physician: Felix Ruby M.D. Division of Service Date: 08/03/2018 Cardiology Birthdate: 1975 Adult Cardiovascular Room #: [place] [address] Cardiovascular Laboratory Report INDICATION: Systolic heart failure. PROCEDURE: 1. Access into right internal jugular vein under ultrasound guidance. 2. Right heart catheterization. 3. Bilateral selective coronary angiography from the right radial access. 4. Left heart catheterization. METHODS: Procedure was explained patient with risks and benefits. He signed informed consent. He was brought to laboratory chemical assistant in a fasting state. The right neck area was prepped and draped in usual fashion. Using ultrasound guidance and micropuncture technique, the right internal jugular vein was accessed. A 6-Dutch x 11 cm sheath was placed. A 6-Dutch Salazar catheter was used for right heart catheterization with measurement of pressures and calculation of cardiac output using the estimated Fito method. Salazar catheter was removed. Access in right radial artery was obtained using micropuncture technique, test was favorable. A 6-Dutch x 11 cm Hydrophilic sheath was advanced. Verapamil was given through the sheath and heparin was administered intravenously. The 6-Dutch JR5 diagnostic catheter was navigated over a Glidewire into the left ventricular cavity and used to perform left heart catheterization with measurement of pressures. Pullback across the aortic valve was performed with measurement of pressures. Bilateral selective coronary angiography was then performed using 6-Dutch JR5 and JL 3.5 diagnostic catheters. Catheters were removed. Procedure was concluded. The radial sheath was removed and a TR band applied for hemostasis. The right internal jugular vein sheath was removed and manual compression applied for hemostasis. He will be observed for 3 hours and then discharged to home. TOTAL FLUOROSCOPY TIME: 9.47 minutes. TOTAL AIR KERMA: 724 mGy. TOTAL CONTRAST VOLUME: 45 mL. HEMODYNAMICS: RA 14. RV 33/6, 15. Pulmonary capillary wedge pressure 17. PA 29/15, mean 21. LV 107/7, 17. AO 104/67, mean 85. AO sat 97%. PA sat 69%. Cardiac output 6.03. Cardiac index 2.41. CORONARY ANGIOGRAPHY: 1. This is a right dominant circulation. 2. Left main: This arises from left coronary cusp. It trifurcates into left anterior descending, ramus, and circumflex vessels. Left main is angiographically normal. 3. Left anterior descending: It is angiographically normal. 4. Ramus vessel: This is a small size vessel. It is angiographically normal. 5. Circumflex vessel: This is large and nondominant vessel. It is angiographically normal. 6. Right coronary artery: This arises from the right coronary cusp. It is a large and dominant vessel. It is angiographically normal. SUMMARY OF FINDINGS: 1. Normal coronary angiogram. 2. Mildly elevated filling pressures. 3. Normal pulmonary arterial pressures. 4. Preserved cardiac output and cardiac index. 5. No evidence of aortic stenosis. RECOMMENDATIONS: 1. Medical therapy for systolic heart failure and nonischemic cardiomyopathy. 2. Follow up in Cardiology Clinic. Electronically Signed by: Felix Ruby M.D. 08/04/2018 05:29 P Felix Ruby M.D. Date Dict: 08/03/2018/09:45 Vincent/Felix Ruby M.D. Date Trans: 08/04/2018 07:03 Vincent/mohinder DN_[id number] cc: Sergio Hernandez M.D. [employer] [address] [facility] [address] [facility] [address] Normal [facility] CBC W/DIFFon 08-03-2018 ABS BASOPHILS 0.1 10*3/uL Normal 0.0-0.2 [facility] Comment on above: Performed By: #### 5 0103 #### [facility] [address] ABS IMM GRANS 0.0 10*3/uL Normal 0.0-0.2 [facility] Comment on above: Performed By: #### 5 0103 #### [facility] [address] ABS NEUTROPHILS 3.8 10*3/uL Normal 1.6-7.6 The [facility] Comment on above: Performed By: #### 5 0103 #### [facility] [address] [place] [address], [facility] Basophils/100 WBC (Bld) 1.0 % Normal 0.0-1.0 [facility] Comment on above: Performed By: #### 5 0103 #### [facility] [address] [place] [address], [facility] Eosinophils (Bld) [#/Vol] 0.2 10*3/uL Normal 0.0-0.5 [facility] Comment on above: Performed By: #### 5 0103 #### [facility] [address] [place] [address], [facility] Eosinophils/100 WBC (Bld) 3.0 % Normal 0.0-6.0 [facility] Comment on above: Performed By: #### 5 0103 #### [facility] [address] [place] [address], [facility] Erythrocyte distribution width (RBC) [Ratio] 12.2 % Normal 11.5-15.0 [facility] Comment on above: Performed By: #### 5 0103 #### [facility] [address] [place] [address], [facility] Hematocrit (Bld) [Volume fraction] 41.9 % Normal 39.0-50.0 [facility] Comment on above: Performed By: #### 5 0103 #### [facility] [address] [facility] [address] Hemoglobin (Bld) [Mass/Vol] 14.5 g/dL Normal 13.0-17.0 [facility] Comment on above: Performed By: #### 5 0103 #### [facility] [address] [place] [address], [facility] IMM PLATELET FRAC 11.7 % High 0.8-6.3 The [facility] Comment on above: Performed By: #### 5 0103 #### [facility] [address] [place] [address], [facility] IMMATURE GRANS 0.2 % Normal 0.0-1.0 The [facility] Comment on above: Performed By: #### 5 0103 #### [facility] [address] [place] [address], [facility] Lymphocytes (Bld) [#/Vol] 3.2 10*3/uL Normal 1.2-4.0 [facility] Comment on above: Performed By: #### 5 0103 #### [facility] [address] [place] [address], [facility] Lymphocytes/100 WBC (Bld) 39.4 % Normal 20.0-45.0 [facility] Comment on above: Performed By: #### 5 0103 #### [facility] [address] [place] [address], [facility] MCH (RBC) [Entitic mass] 31.7 pg Normal 27.0-33.0 [facility] Comment on above: Performed By: #### 5 3 #### [facility] [address] [facility] [place] [address], [facility] MCHC (RBC) [Mass/Vol] 34.6 g/dL Normal 32.0-35.0 [facility] Comment on above: Performed By: #### 5 3 #### [facility] [address] [facility] [place] [address], [facility] MCV (RBC) [Entitic vol] 91.5 fL Normal 82.0-98.0 [facility] Comment on above: Performed By: #### 5 3 #### [facility] [address] [facility] [place] [address], [facility] Monocytes (Bld) [#/Vol] 0.7 10*3/uL Normal 0.1-1.0 [facility] Comment on above: Performed By: #### 5 3 #### [facility] [address] [facility] [place] [address], [facility] MONOS 9.0 % Normal 5.0-12.0 [facility] Comment on above: Performed By: #### 5 3 #### [facility] [address] [place] [address], [facility] Neutrophils/100 WBC (Bld) 47.4 % Normal 40.0-72.0 [facility] Comment on above: Performed By: #### 5 3 #### [facility] [address] [place] [address], [facility] Nucleated RBC/100 WBC (Bld) [Ratio] 0 % Normal 0-0 [facility] Comment on above: Performed By: #### 5 3 #### [facility] [address] [place] [address], [facility] PLAT CNT 215 10*3/uL Normal 150-400 [facility] Comment on above: Performed By: #### 5 0103 #### [facility] [address] [place] [address], [facility] RBC (Bld) [#/Vol] 4.58 10*6/uL Normal 4.20-5.70 [facility] Comment on above: Performed By: #### 5 0103 #### [facility] [address] [place] [address], [facility] WBC (Bld) [#/Vol] 8.02 10*3/uL Normal 4.00-10.60 [facility] Comment on above: Performed By: #### 5 0103 #### [facility] [address] [facility] [place] [address], [facility] Encounters Encounter Date Encounter Type Care Provider Facility Start: 04-19-[address] [facility] Start: 04-19-2024 End: 04-19-[address] [facility] Start: 03-29-2024 End: 03-29-2024 Shaheed Sanon MA [facility] Comment on above: Influenza A (Primary Dx) Start: 03-21-2024 End: 03-21-2024 Clinisync Result Encounter Generic External Data Provider [facility] Unsolicited Start: 03-21-2024 End: 03-21-2024 Clinisync Result Encounter Generic External Data Provider [facility] Unsolicited Start: 03-14-2024 End: 03-14-2024 ambulatory [facility] Facility:[facility] Start: 03-08-2024 End: 03-08-[address] [facility] Start: 02-14-2024 End: 02-14-2024 ambulatory ARIEL GUEVARA [facility] Start: 01-25-[address] [facility] Start: 01-25-2024 End: 01-25-2024 ambulatory JAVIER [facility] Start: 01-04-2024 End: 01-04-2024 ambulatory ARIEL GUEVARA [facility] Start: 07-19-2023 Patient encounter status Generic Provider [facility] Start: 07-19-2023 End: 07-19-2023 ambulatory RUGEN M DAVID Not Available Start: 07-07-2023 End: 07-07-2023 ambulatory RUGEN M DAVID Not Available Start: 06-28-2023 End: 06-28-2023 ambulatory RUGEN M DAVID Not Available Start: 05-27-2023 End: 05-27-2023 [facility] Start: 04-08-2022 End: 04-09-2022 ambulatory CHRISTOPH COOK Facility:[facility] Start: 04-02-2022 End: 04-03-2022 ambulatory CHRISTOPH COOK Facility: Start: 08-03-2018 End: 08-04-2018 Patient encounter procedure PROVIDER UNKNOWN Facility:[facility] Procedures Date Procedure Procedure Detail Performing Clinician Start: 03-21-2024 CARD ECHO LIMITED STUDY Generic External Data Provider Plan of Treatment Date Care Activity Detail Author Start: 07-28-2026 Screening for malign ant neoplasm of colon [facility] Start: 10-09-2023 Influenza vaccination Influenza Vacc ine (#1) [facility] Start: 1975 Screening for malign ant neoplasm of colon [facility] Immunizations Immunization Date Immunization Notes Care Provider Fa cility 03-07-2019 Influenza, injectabl e, Madin Radha Canine Kidney, preservative free, quadrivalent Generic Provider [facility] 03-07-2019 influenza virus vacc ine, unspecified formulation Generic Provider [facility] Payers Date Payer Category Payer [facility] [id number] 1975 Unknown [id number] [id number] 1975 Unknown [id number] [id number] 1975 Unknown [id number] [id number] 1975 Unknown [id number] [id number] 1975 Unknown [id number] [id number] 1975 Unknown [id number] [id number] 1961 Unknown [id number] Social History Date Type Detail Facility Start: 07-19-2023 Tobacco smoking stat [facility] Never smoked tobacco [facility] Start: 07-19-2023 Tobacco use and exposure Smoke less tobacco non-user [facility] Start: 07-19-2023 Alcoholic beverage intake Curr ent drinker of alcohol (finding) [facility] Start: 07-12-2023 End: 07-19-2023 [facility] Start: 07-12-2023 End: 07-19-2023 Social connection and isolation panel [facility] In a typical week, h ow many times do you talk on the telephone with family, friends, or neighbors? Patient declined [facility] Do you feel stress - tense, restless, nervous, or anxious, or unable to sleep at night because your mind is troubled all the time - these days [OSQ] Rather much [facility] Start: 1975 Sex assigned at Not on file [facility] Clinical Notes 05-27-2023 to 04-19-2024 Note Date & Type Note Facility 04-19-2024 Note Patient: Ramiro kilpatrick Procedure Summary Date: 04/19/24 Room / Location: [facility] MANAGER BUSINESS OPERATIONS 1 / [facility] HV VASCULAR LAB (Cath) Anesthesia Start: 1233 Anesthesia Stop: 151 Procedure: Ablation a-fib paroxysmal Diagnosis: Paroxysmal atrial fibrillation (CMS/HCC) (Paroxysmal atrial fibrillation (CMS/HCC) [I48.0]) Providers: Javier Moya MD Responsible Provider: Fito Scott MD Anesthesia Type: general ASA Status: 3 Anesthesia Type: general Vitals Value Taken Time BP 144/83 04/19/24 1630 Temp 36.3 ???C (97.3 ???F) 04/19/24 1615 Pulse 81 04/19/24 1630 Resp 14 04/19/24 1630 SpO2 100 % 04/19/24 1630 Anesthesia Post Evaluation Patient location during evaluation: PACU Patient participation: complete - patient participated Level of consciousness: awake and alert Pain management: adequate Airway patency: patent Cardiovascular status: acceptable and blood pressure returned to baseline Respiratory status: acceptable Hydration status: acceptable Patient is hemodynamically stable and is able to be discharged from PACU per anesthesia protocol. There were no known notable events for this encounter. [facility] 04-19-2024 Note Airway Date/Time: 04/19/2024 12:45 PM Urgency: elective General Information and Staff Patient location during procedure: OR Anesthesiologist: Fito Scott MD Resident/BRIM POUNCER/CAA: Filiberto Schroeder MD Performed: resident/BRIM POUNCER/CAA Indications and Patient Condition Indications for airway management: anesthesia Spontaneous Ventilation: absent Sedation level: deep Preoxygenated: yes Mask difficulty assessment: 1 - vent by mask Final Airway Details Final airway type: endotracheal airway Successful airway: ETT Cuffed: yes Successful intubation technique: video laryngoscopy Facilitating devices/methods: intubating stylet Endotracheal tube insertion site: oral Blade: Nielsen Blade size: #3 ETT size (mm): 8.0 Cormack-Lehane Classification: grade I - full view of glottis Placement verified by: chest auscultation and capnometry Measured from: lips ETT to lips (cm): 22 Number of attempts at approach: 1 Number of other approaches attempted: 0 [facility] 04-19-2024 Note Arterial Line: Date/Time: 04/19/2024 12:30 PM An arterial line was placed Procedure performed using surface landmarks.in the pre-op for the following indication(s): continuous blood pressure monitoring and blood sampling needed. A 20 G (size), 2 inch (length), Angiocath (type) catheter was placed, Seldinger technique used , into the Right radial artery, secured by Biodisc/Biopatch, tape and Tegaderm. Events: patient tolerated procedure well with no complications. Staffing Performed: resident/BRIM POUNCER/CAA Anesthesiologist: Fito Scott MD Resident/BRIM POUNCER: Ari Benavides MD Performed by: Ari Benavides MD Authorized by: Fito Scott MD [facility] 04-19-2024 Note Patient: Ramiro kilpatrick Procedure Information Date/Time: 04/19/24 1230 Procedure: Ablation a-fib paroxysmal Location: [facility] MANAGER BUSINESS OPERATIONS 1 / [facility] VASCULAR LAB (Cath) Providers: Javier Moya MD Relevant Problems Anesthesia (+) YUE (obstructive sleep apnea) (+) Obstructive sleep apnea syndrome Cardio (+) Hypertensive disorder (+) Paroxysmal atrial fibrillation (CMS/HCC) /Renal (+) Fatty liver, alcoholic Clinical information reviewed: Tobacco Allergies Meds Med Hx Surg Hx Fam Hx Soc Hx Past Surgical History: Procedure Laterality Date APPENDECTOMY BACK SURGERY CARDIAC CATHETERIZATION Past Medical History: Diagnosis Date Afib (CMS/HCC) CHF (congestive heart failure) (CMS/HCC) Depression Hyperlipidemia Hypertension Sleep apnea Medication Documentation Review Audit Reviewed by Maria Luz Brito RN (Registered Nurse) on 04/19/24 at 1019 Medication Order Taking? Sig Documenting Provider Last Dose Status amiodarone (Pacerone) 200 mg tablet [id number] Yes Take 1 tablet (200 mg) by mouth in the morning. Do not start before March 27, 2024. Javier Moya MD 04/19/2024 Active amiodarone (Pacerone) 400 mg tablet [id number] No Take 1 tablet (400 mg) by mouth 2 times daily for 14 days. Patient not taking: Reported on 04/10/2024 Javier Moya MD Not Taking 03/26/24 2359 apixaban (Eliquis) 5 mg tablet [id number] Yes Take 1 tablet (5 mg) by mouth two times daily. Ariel Guevara CNP Past Week Active atorvastatin (Lipitor) 40 mg tablet [id number] Yes Take 1 tablet (40 mg) by mouth at bedtime. Patient taking differently: Take 40 mg by mouth in the morning. Ariel Guevara CNP 04/18/2024 Active dapagliflozin propanediol (Farxiga) 5 mg [id number] Yes Take 1 tablet (5 mg) by mouth once daily as directed. Ariel Guevara CNP 04/18/2024 Active DULoxetine (Cymbalta) [address] capsule [id number] Yes Take 60 mg by mouth in the morning. Historical Provider, 04/19/2024 Active furosemide (Lasix) 40 mg tablet [id number] Yes Take 1 tablet (40 mg) by mouth in the morning. Ariel Guevara CNP 04/18/2024 Active lisinopril 20 mg tablet [id number] Yes Take 1 tablet (20 mg) by mouth in the morning. Ariel Guevara CNP 04/18/2024 Active metoprolol succinate XL (Toprol-XL) 100 mg 24 hr tablet [id number] Yes Take 1 tablet (100 mg) by mouth once daily as directed. Do not crush or chew. Ariel Guevara CNP 04/19/2024 Active bd-dce-bmcoj-J1-fazedcs-ruxdwv (Centrum Darrell Men) 189-99-680-300 mcg tablet [id number] Yes Take 1 tablet by mouth in the morning. Historical Provider, Past Week Active No Known Allergies Lab Results Component Value Date GLUCOSE 109 (H) 03/08/2024 CALCIUM 9.7 03/08/2024 NA 140 03/08/2024 K 4.1 03/08/2024 CO2 27 03/08/2024 CL 104 03/08/2024 BUN 17 03/08/2024 CREATININE 0.86 03/08/2024 eGFR (mL/min/1.73m*2) Date Value 03/08/2024 104.8 01/25/2024 98.8 Lab Results Component Value Date WBC 6.87 03/08/2024 HGB 15.3 03/08/2024 HCT 44.5 03/08/2024 MCV 89.9 03/08/2024 PLT 225 03/08/2024 No results found for: PTT No results found for: INR , PROTIME No results found for: ABORH No results found for: ALT , AST , GGT , ALKPHOS , BILITOT No results found for: HGBA1C TTE: Left Ventricle: Global left ventricular systolic function is mildly reduced. EF range is estimated at 40 % -45 %. Right Ventricle: The right ventricle appears normal in size. Right ventricular systolic function appears normal. Left Atrium: The left atrium appears enlarged. Physical Exam Airway Mallampati: III TM distance: >3 FB Neck ROM: full Cardiovascular - normal exam Rhythm: regular Rate: normal Dental - normal exam Pulmonary - normal exam Breath sounds clear to auscultation Abdominal Anesthesia Plan ASA 3 general The patient is not a current smoker. intravenous induction Trial extubation is planned. Anesthetic plan and risks discussed with patient. Use of blood products discussed with patient who consented to blood products. Plan discussed with attending and resident. Additional Equipment Requests Tube Size: 8.0 Vascular Equipment: arterial line kit [facility] 03-08-2024 Note MD Electrophysiology Consult Note MD Cardiology - [facility] Heart and Vascular Center Reason for visit: Afib HPI: Ramiro Gamino is a 49 y.o. year old with past medical history of, HTN, Obesity, DM2, systolic heart failure with improved ejection fraction on subsequent follow-up. He has nonischemic cardiomyopathy with normal coronary angiogram in July 2018. His left ventricular ejection fraction improved from 40% in June 2018-50 5-60% in February 2019 and 2021. In December, he noticed palpitations when he was laying down. [place] like quivering in his chest and a fast HR. He thought this was maybe due to stress and noticed increased shortness of breath with exertion. He was cardioverted to SR and stayed in it for 1 month and he reverted to Afib. He has not been on any AAD thus far EKG 02/27/24 Afib with varibale VR PMH: Past Medical History: Diagnosis Date Afib (CMS/HCC) CHF (congestive heart failure) (CMS/HCC) Depression Hyperlipidemia Hypertension Sleep apnea PSH: Past Surgical History: Procedure Laterality Date APPENDECTOMY BACK SURGERY CARDIAC CATHETERIZATION SH: Social Determinants of Health Tobacco Use: Low Risk (03/08/2024) Patient History Smoking Tobacco Use: Never Smokeless Tobacco Use: Never Passive Exposure: Not on file Alcohol Use: Patient Declined (07/12/2023) Received from [facility] AUDIT-C Frequency of Alcohol Consumption: Patient declined Average Number of Drinks: Patient declined Frequency of Binge Drinking: Patient declined Financial Resource Strain: Patient Declined (07/12/2023) Received from [facility] Overall Financial Resource Strain (CARDIA) Difficulty of Paying Living Expenses: Patient declined Food Insecurity: Patient Declined (07/12/2023) Received from [facility] Hunger Vital Sign Worried About Running Out of Food in the Last Year: Patient declined Ran Out of Food in the Last Year: Patient declined Transportation Needs: Patient Declined (07/12/2023) Received from [facility] PRAPARE - Transportation Lack of Transportation (Medical): Patient declined Lack of Transportation (Non-Medical): Patient declined Physical Activity: Patient Declined (07/12/2023) Received from [facility] Exercise Vital Sign Days of Exercise per Week: Patient declined Minutes of Exercise per Session: Patient declined Stress: Stress Concern Present (07/12/2023) Received from [facility] [place] [employer] - Occupational Stress Questionnaire Feeling of Stress : Rather much Social Connections: Patient Declined (07/12/2023) Received from [facility] Social Connection and Isolation Panel [NHANES] Frequency of Communication with Friends and Family: Patient declined Frequency of Social Gatherings with Friends and Family: Patient declined Attends Mu-Ism Services: Patient declined Active Member of Clubs or Organizations: Patient declined Attends Club or Organization Meetings: Patient declined Marital Status: Patient declined Intimate Partner Violence: Unknown (03/31/2023) MD Safety & Environment Fear of Current or Ex-Partner: Not on file Emotionally Abused: Not on file Physically Abused: Not on file Sexually Abused: Not on file Physically or Sexually Abused: Not on file Depression: Not on file Housing Stability: Patient Declined (07/12/2023) Received from [facility] Housing Stability Vital Sign Unable to Pay for Housing in the Last Year: Patient declined Number of Places Lived in the Last Year: Not on file Unstable Housing in the Last Year: Patient declined Utilities: Not on file Health Literacy: Not on file Allergies: No Known Allergies Weight: 129kg Visit Vitals Wt 129 kg (285 lb) BMI 36.59 kg/m??? Smoking Status Never BSA 2.6 m??? Meds: Current Outpatient Medications on File Prior to Visit Medication Sig Dispense Refill apixaban (Eliquis) 5 mg tablet Take 1 tablet (5 mg) by mouth two times daily. 180 tablet 3 atorvastatin (Lipitor) 40 mg tablet Take 1 tablet (40 mg) by mouth at bedtime. (Patient taking differently: Take 40 mg by mouth in the morning.) 90 tablet 3 dapagliflozin propanediol (Farxiga) 5 mg Take 1 tablet (5 mg) by mouth in the morning. 90 tablet 3 DULoxetine (Cymbalta) [address] capsule Take 60 mg by mouth in the morning. furosemide (Lasix) 40 mg tablet Take 1 tablet (40 mg) by mouth in the morning. 90 tablet 3 lisinopril 20 mg tablet Take 1 tablet (20 mg) by mouth in the morning. 90 tablet 3 metoprolol succinate XL (Toprol-XL) 100 mg 24 hr tablet Take 1 tablet (100 mg) by mouth once daily as directed. Do not crush or chew. 90 tablet 3 rz-sju-bnmvw-N2-klrzuuo-jbccon (Centrum Silver Men) 556-27-100-300 mcg tablet Take 1 tablet by mouth in the morning. [DISCONTINUED] dapagliflozin propanediol (Farxiga) 5 mg Take 1 tablet (5 mg) by mouth in the morning. 90 tablet 3 [DISCONTINUED] dapagliflozin propanediol (Farxiga) 5 mg Take 1 tablet (5 mg) (more content not included)... [facility] 02-14-2024 Note Patient here for fol low up ERYN/DCCV on 01/25/[address] Moya. He feels good, denies chest pain, SOB, palpitations, and bleeding on Eliquis. Review of Systems All other systems reviewed and are negative. [facility] 02-14-2024 Note Cardiovascular Medic [facility] SUBJECTIVE Chief Complaint Patient presents with Congestive Heart Failure Atrial Fibrillation Hypertension Ramiro Gamino is a 48 y.o. male here for follow-up. HPI PMHx: HFimpEF, HTN, YUE he is compliant with his CPAP, HLD, atrial fibrillation 02/14/2024 At his last visit, he was found to have new onset a.fib. He has since undergone a ERYN with cardioversion. Cardioversion successfully converted him to SR. His ERYN showed his heart failure is reduced again to 40-45%. He is feeling much better since his cardioversion. He has more energy, less SOB. 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 BP and HR is better. He is down 13# since last seen. Denies c/o CP, dyspnea, orthopnea, PND, LE edema, dizziness/LH, palpitations, syncope. Patient Active Problem List Diagnosis Acute on chronic systolic heart failure, NYHA class 2 (CMS/HCC) Heart disease, hypertensive, with heart failure (CMS/HCC) YUE (obstructive sleep apnea) Dyspnea Edema Hypertensive disorder Mixed hyperlipidemia Systolic heart failure (CMS/HCC) Obstructive sleep apnea syndrome Gout Impaired fasting glucose Insomnia Male hypogonadism Peripheral neuropathic pain Adjustment disorder with depressed mood Body mass index (BMI) 35.0-35.9, adult Elevated liver function tests Encounter for well adult exam with abnormal findings Family history of pancreatic cancer Fatty liver, alcoholic Morbid (severe) obesity due to excess calories (CMS/HCC) Weight gain Paroxysmal atrial fibrillation (CMS/HCC) Past Medical History: Diagnosis Date CHF (congestive heart failure) (CMS/HCC) Hyperlipidemia Hypertension Sleep apnea Family History Problem Relation Name Age of Onset Cancer Mother Koki Atrial fibrillation Father Law Heart failure Father Law Systolic Cancer Brother Cecilio Heart attack Maternal Grandfather Doc Cancer Paternal Grandmother Quni Cancer Paternal Grandfather Elijah Social History Tobacco Use Smoking status: Never Smokeless tobacco: Never Substance Use Topics Alcohol use: Yes Alcohol/week: 30.0 standard drinks of alcohol Types: 30 Cans of beer per week Comment: moderate Drug use: Never No Known Allergies Review of Systems Constitutional: Positive for weight loss. Negative for chills, decreased appetite, fever, malaise/fatigue and weight gain. Cardiovascular: Negative for chest pain, dyspnea on exertion, irregular heartbeat, leg swelling, near-syncope, orthopnea, palpitations, paroxysmal nocturnal dyspnea and syncope. Hematologic/Lymphatic: Negative for bleeding problem. Does not bruise/bleed easily. OBJECTIVE Visit Vitals BP 118/80 (BP Location: Right arm, Patient Position: Sitting) Pulse 66 Ht 1.88 m (6' 2 ) Wt 130 kg (286 lb) SpO2 95% BMI 36.72 kg/m??? Smoking Status Never BSA 2.61 m??? Medications: Current Outpatient Medications: apixaban (Eliquis) 5 mg tablet, Take 1 tablet (5 mg) by mouth two times daily., Disp: 180 tablet, Rfl: 3 atorvastatin (Lipitor) 40 mg tablet, Take 1 tablet (40 mg) by mouth in the morning., Disp: 90 tablet, Rfl: 3 dapagliflozin propanediol (Farxiga) 5 mg, Take 1 tablet (5 mg) by mouth in the morning., Disp: 90 tablet, Rfl: 3 DULoxetine (Cymbalta) [address] capsule, Take 60 mg by mouth in the morning., Disp: , Rfl: furosemide (Lasix) 40 mg tablet, Take 1 tablet (40 mg) by mouth in the morning., Disp: 90 tablet, Rfl: 3 lisinopril 20 mg tablet, Take 1 tablet (20 mg) by mouth in the morning., Disp: 90 tablet, Rfl: 3 metoprolol succinate XL (Toprol-XL) 100 mg 24 hr tablet, Take 1 tablet (100 mg) by mouth once daily as directed. Do not crush or chew., Disp: 90 tablet, Rfl: 3 id-txh-anpya-O4-hpewqzs-gnpblg (Centrum Silver Men) 357-33-442-300 mcg tablet, Take 1 tablet by mouth in the morning., Disp: , Rfl: Physical Exam Constitutional: Appearance: Normal appearance. He is normal weight. HENT: Head: Normocephalic and atraumatic. Right Ear: External ear normal. Left Ear: External ear normal. Eyes: Extraocular Movements: Extraocular movements intact. Pupils: Pupils are equal, round, and reactive to light. Neck: Vascular: No carotid bruit. Cardiovascular: Rate and Rhythm: Normal rate and regular rhythm. Pulses: Normal pulses. Heart sounds: Normal heart sounds. Pulmonary: Effort: Pulmonary effort is normal. Breath sounds: Normal breath sounds. Abdominal: General: Bowel sounds are normal. Palpations: Abdomen is soft. Musculoskeletal: General: Normal range of motion. Cervical back: Neck supple. Right lower leg: No edema. Left lower leg: No edema. Skin: General: Skin is warm and dry. Neurological: General: No focal deficit present. Mental Status: He is alert and oriented to person, place, and time. Psychiatric: Mood and Affect: Mood normal. Behavior: Behavior normal. Though (more content not included)... [facility] 01-04-2024 Note Cardiovascular Medic [facility] SUBJECTIVE Chief Complaint Patient presents with Congestive Heart Failure Hypertension Hyperlipidemia Atrial Fibrillation Ramiro Gamino is a 48 y.o. male here for follow-up. HPI PMHx: HFimpEF, HTN, YUE, HLD Patient here c/o elevated BP's and palpitations. Today was 151/105 before medications. 140/104 is what it was 3 hours after medications. C/o VOGT. Denies chest pain. No recent labs/imaging. 2-3 weeks ago he noticed palpitations when he was laying down. [place] like quivering in his chest and a fast HR. He thought this was maybe due to stress. Yesterday he noticed increased shortness of breath with exertion. He reports having gradual weight gain Denies CP, orthopnea, PND, LE edema, dizziness/LH, syncope. Patient Active Problem List Diagnosis Acute on chronic systolic heart failure, NYHA class 2 (CMS/HCC) Heart disease, hypertensive, with heart failure (CMS/HCC) YUE (obstructive sleep apnea) Dyspnea Edema Hypertensive disorder Mixed hyperlipidemia Systolic heart failure (CMS/HCC) Obstructive sleep apnea syndrome Gout Impaired fasting glucose Insomnia Male hypogonadism Peripheral neuropathic pain Adjustment disorder with depressed mood Body mass index (BMI) 35.0-35.9, adult Elevated liver function tests Encounter for well adult exam with abnormal findings Family history of pancreatic cancer Fatty liver, alcoholic Morbid (severe) obesity due to excess calories (CMS/HCC) Weight gain Paroxysmal atrial fibrillation (CMS/HCC) Past Medical History: Diagnosis Date CHF (congestive heart failure) (CMS/HCC) Hyperlipidemia Hypertension Sleep apnea Family History Problem Relation Name Age of Onset Atrial fibrillation Father Heart attack Maternal Grandfather Social History Tobacco Use Smoking status: Never Smokeless tobacco: Never Substance Use Topics Alcohol use: Yes Comment: moderate No Known Allergies ROS Constitutional: Positive for weight gain (31# since May 2023). Cardiovascular: Positive for dyspnea on exertion and palpitations. All other systems reviewed and are negative. OBJECTIVE Visit Vitals BP 128/76 (BP Location: Left arm, Patient Position: Sitting) Pulse 106 Ht 1.88 m (6' 2 ) Wt 136 kg (299 lb) SpO2 96% BMI 38.39 kg/m??? Smoking Status Never BSA 2.66 m??? Medications: Current Outpatient Medications: aspirin 81 mg EC tablet, in the morning., Disp: , Rfl: atorvastatin (Lipitor) 40 mg tablet, Take 1 tablet (40 mg) by mouth in the morning., Disp: 90 tablet, Rfl: 3 dapagliflozin propanediol (Farxiga) 5 mg, Take 1 tablet (5 mg) by mouth in the morning., Disp: 90 tablet, Rfl: 3 DULoxetine (Cymbalta) [address] capsule, Take 60 mg by mouth in the morning., Disp: , Rfl: furosemide (Lasix) 40 mg tablet, Take 1 tablet (40 mg) by mouth in the morning., Disp: 90 tablet, Rfl: 3 lisinopril 20 mg tablet, Take 1 tablet (20 mg) by mouth in the morning., Disp: 90 tablet, Rfl: 3 apixaban (Eliquis) 5 mg tablet, Take 1 tablet (5 mg) by mouth two times daily., Disp: 180 tablet, Rfl: 3 metoprolol succinate XL (Toprol-XL) 100 mg 24 hr tablet, Take 1 tablet (100 mg) by mouth once daily as directed. Do not crush or chew., Disp: 90 tablet, Rfl: 3 Physical Exam Constitutional: Appearance: Normal appearance. He is normal weight. HENT: Head: Normocephalic and atraumatic. Right Ear: External ear normal. Left Ear: External ear normal. Eyes: Extraocular Movements: Extraocular movements intact. Pupils: Pupils are equal, round, and reactive to light. Neck: Vascular: No carotid bruit. Cardiovascular: Rate and Rhythm: Normal rate. Rhythm irregular. Pulses: Normal pulses. Heart sounds: Normal heart sounds. Pulmonary: Effort: Pulmonary effort is normal. Breath sounds: Normal breath sounds. Abdominal: General: Bowel sounds are normal. Palpations: Abdomen is soft. Musculoskeletal: General: Normal range of motion. Cervical back: Neck supple. Right lower leg: No edema. Left lower leg: No edema. Skin: General: Skin is warm and dry. Neurological: General: No focal deficit present. Mental Status: He is alert and oriented to person, place, and time. Psychiatric: Mood and Affect: Mood normal. Behavior: Behavior normal. Thought Content: Thought content normal. Judgment: Judgment normal. Labs: Legacy Encounter on 08/03/2018 Component Date Value Ref Range Status Auto WBC 08/03/2018 8.02 4.00 - 10.60 10*3/uL Final RBC 08/03/2018 4.58 4.20 - 5.70 10*6/uL Final Hemoglobin 08/03/2018 14.5 13.0 - 17.0 g/dL Final Hematocrit 08/03/2018 41.9 39.0 - 50.0 % Final MCV 08/03/2018 91.5 82.0 - 98.0 fL Final MCH 08/03/2018 31.7 27.0 - 33.0 pg Final MCHC 08/03/2018 34.6 32.0 - 35.0 g/dL Final RDW 08/03/2018 12.2 11.5 - 15.0 % Final Platelets 08/03/2018 215 150 - 400 10*3/uL Final Immature Platelet Fraction 08/03/2018 11.7 (H) 0.8 - 6.3 % Final N (more content not included)... [facility] 01-04-2024 Note Patient here c/o phoebe vated BP's and palpitations. Today was 151/105 before medications. 140/104 is what it was 3 hours after medications. C/o VOGT. Denies chest pain. No recent labs/imaging. Review of Systems Constitutional: Positive for weight gain (31# since May 2023). Cardiovascular: Positive for dyspnea on exertion and palpitations. All other systems reviewed and are negative. [facility] 07-07-2023 Note PROCEDURE: Following oral contrast administration, pre and post-intravenous contrast helical images, 5 mm slice thickness, were performed through the abdomen. Delayed imaging through the kidneys was also performed. FINDINGS: Diffuse hepatic fatty infiltration. No intrahepatic mass, smooth contour. Normal splenic volume. Normal gallbladder and biliary tree. No pancreatic mass, significant inflammation, or pancreatic ductal dilatation. Nonspecific peripancreatic 1.5 - 2.5 cm lymph node aggregate. Unremarkable lung bases, adrenal glands, and kidneys. Moderate volume of colon stool, minimal diverticular formation, no inflammation or colon mass. No ascites. Distal lumbar fusion hardware. IMPRESSION: No pancreatic mass, nonspecific peripancreatic low volume lymph nodes. This can serve as a baseline for follow-up examinations. TRANSCRIBED BY: ELECTRONICALLY SIGNED BY: Wilfrido Sweet MD Not Available 05-27-2023 Note MD Cardiology - [facility] Subjective Ramiro Gamino is a 48 y.o. year old male patient being seen for Follow-up (6 month follow up ) Patient Active Problem List Diagnosis Acute on chronic systolic heart failure, NYHA class 2 (CMS/HCC) Heart disease, hypertensive, with heart failure (CMS/HCC) YUE (obstructive sleep apnea) Dyspnea Edema Hypertensive disorder Mixed hyperlipidemia Systolic heart failure (CMS/HCC) Obstructive sleep apnea syndrome Gout Impaired fasting glucose Insomnia Male hypogonadism Peripheral neuropathic pain Family History Problem Relation Name Age of Onset Atrial fibrillation Father Heart attack Maternal Grandfather Social History Tobacco Use Smoking status: Never Smokeless tobacco: Never Substance Use Topics Alcohol use: Yes Comment: maggy ESQUIVEL Ramiro is seen in follow-up. He is a 48-year-old man with prior history of systolic heart failure with improved ejection fraction on subsequent follow-up. He has nonischemic cardiomyopathy with normal coronary angiogram in July 2018. His left ventricular ejection fraction improved from 40% in June 26-50 5-60% in February 2019 and 2021. Additional medical history includes hypertension and obesity. He also has prediabetes. He is on [facility] for that. Today he reports that he has been doing well. he denies chest pain, shortness of breath, palpitations, dizziness, syncope and leg edema. he has good exercise tolerance. There is no claudication. He feels great after he has lost significant amount of weight. Review of Systems Cardiovascular: Negative for chest pain, claudication, dyspnea on exertion, irregular heartbeat, leg swelling, near-syncope, orthopnea, palpitations, paroxysmal nocturnal dyspnea and syncope. All other systems reviewed and are negative. Objective Visit Vitals BP 106/62 (BP Location: Left arm, Patient Position: Sitting, BP Cuff Size: Adult) Pulse 75 Resp 12 Ht 1.88 m (6' 2 ) Wt 122 kg (268 lb) SpO2 94% BMI 34.41 kg/m??? Smoking Status Never BSA 2.52 m??? Physical Exam Constitutional: Appearance: He is well-developed. He is obese. He is not ill-appearing. HENT: Head: Normocephalic and atraumatic. Nose: Nose normal. Eyes: General: No scleral icterus. Pupils: Pupils are equal, round, and reactive to light. Neck: Thyroid: No thyromegaly. Vascular: No JVD. Cardiovascular: Rate and Rhythm: Normal rate and regular rhythm. Pulses: Radial pulses are 2+ on the right side and 2+ on the left side. Heart sounds: Normal heart sounds. No murmur heard. No friction rub. No gallop. Pulmonary: Effort: Pulmonary effort is normal. No respiratory distress. Breath sounds: Normal breath sounds. No wheezing or rales. Chest: Chest wall: No tenderness. Abdominal: General: Bowel sounds are normal. There is no distension. Palpations: Abdomen is soft. Tenderness: There is no abdominal tenderness. Musculoskeletal: General: No swelling. Cervical back: Neck supple. Skin: General: Skin is warm and dry. Neurological: General: No focal deficit present. Mental Status: He is alert and oriented to person, place, and time. Psychiatric: Mood and Affect: Mood normal. Behavior: Behavior is cooperative. Judgment: Judgment normal. Allergies No Known Allergies Medications Current Outpatient Medications: aspirin 81 mg EC tablet, in the morning., Disp: , Rfl: atorvastatin (Lipitor) 40 mg tablet, Take 1 tablet (40 mg) by mouth in the morning., Disp: 90 tablet, Rfl: 3 dapagliflozin propanediol (Farxiga) 5 mg, Take 1 tablet (5 mg) by mouth in the morning., Disp: 90 tablet, Rfl: 3 furosemide (Lasix) 40 mg tablet, Take 1 tablet (40 mg) by mouth in the morning., Disp: 90 tablet, Rfl: 3 lisinopril 20 mg tablet, Take 1 tablet (20 mg) by mouth in the morning., Disp: 90 tablet, Rfl: 3 metoprolol succinate XL (Toprol-XL) 50 mg 24 hr tablet, Take 1 tablet by mouth once daily as directed. Do not crush or chew., Disp: 90 tablet, Rfl: 3 Recent Labs No visits with results within 6 Month(s) from this visit. Latest known visit with results is: Legacy Encounter on 08/03/2018 Component Date Value Auto WBC 08/03/2018 8.02 RBC 08/03/2018 4.58 Hemoglobin 08/03/2018 14.5 Hematocrit 08/03/2018 41.9 MCV 08/03/2018 91.5 MCH 08/03/2018 31.7 MCHC 08/03/2018 34.6 RDW 08/03/2018 12.2 Platelets 08/03/2018 215 Immature Platelet Fracti* 08/03/2018 11.7 (H) Neutrophils % 08/03/2018 47.4 Immature Granulocyte 08/03/2018 0.2 Lymphocytes % 08/03/2018 39.4 Monocytes % 08/03/2018 9.0 Eosinophils % 08/03/2018 3.0 Basophils % 08/03/2018 1.0 Granulocyte Abs 08/03/2018 3.8 Immature Granulocyte Abs 08/03/2018 0.0 Lymphocytes Absolute 08/03/2018 3.2 Monocytes Absolute 08/03/2018 0.7 Eosinophils Absolute 08/03/2018 0.2 Basophils Absolute 08/03/2018 0.1 nRBC % 08/03/2018 0 Blood testing 11/08/2022: Hemoglobin 15.2, platelets 210, (more content not included)... [facility] Evaluation note Diagnosis Essential hypertension (CMS/HCC)- Primary Unspecified essential hypertension Chronic systolic congestive heart failure (CMS/HCC) Male hypogonadism Other testicular hypofunction Adjustment disorder with depressed mood (CMS/HCC) Adjustment disorder with depressed mood Weight gain Other symptoms concerning nutrition, metabolism, and development Elevated liver function tests Other abnormal blood chemistry Family history of pancreatic cancer Family history of malignant neoplasm of gastrointestinal tract Screen for colon cancer Special screening for malignant neoplasms, colon Encounter for well adult exam with abnormal findings- Primary Nocturia Impaired fasting glucose Adjustment disorder with depressed mood (CMS/HCC) Adjustment disorder with depressed mood Morbid (severe) obesity due to excess calories (E66.01) Essential (primary) hypertension (I10) Unspecified essential hypertension Body mass index [BMI] 35.0-35.9, adult (Z68.35) Fatty liver, alcoholic Alcoholic fatty liver Weight gain Other symptoms concerning nutrition, metabolism, and development Influenza A- Primary Influenza with other respiratory manifestations documented in this encounter [facility] Summary Purpose Family History No Family History Records FoundNo Family History Records FoundNo Family History Records FoundNo Family History Records FoundNo Family History Records Found Advance Directives No Advanced Directives Records FoundNo Advanced Directives Records FoundNo Advanced Directives Records FoundNo Advanced Directives Records FoundNo Advanced Directives Records Found Additional Source Comments (unrecognized sect ion and content) No Status Records FoundNo Status Records FoundNo Status Records FoundNo Status Records FoundNo Status Records Found INFORMATION SOURCE (unrecogn ized section and content) DATE CREATED AUTHOR 02/20/2019 [facility] DATE CREATED AUTHOR AUTHOR'S ORGANIZ ATION 04/14/2022 [facility] DATE CREATED AUTHOR AUTHOR'S ORGANIZ ATION 07/19/2023 [facility] DATE CREATED AUTHOR AUTHOR'S ORGANIZ ATION 03/16/2024 Nathan Sweet [facility] DATE CREATED AUTHOR AUTHOR'S ORGANIZ ATION 04/29/2024 [facility] Care Teams (unrecognized sec tion and content) Signaling Project Engineer Relationship Specialty Start Date End Date Sergio Hernandez MD [address] [facility] [address] [place] [address] PCP - [employer] 01/07/22 Sergio Hernandez MD [address] [facility] [address] [place] [address] PCP - General Family Medicine 06/15/22 Signaling Project Engineer Relationship Specialty Start Date End Date Sergio Hernandez MD [address] [facility] [address] [place] [address] PCP - [employer] 01/07/22 Sergio Hernandez MD [address] [facility] [address] [place] [address] PCP - General Family Medicine 06/15/22 Reason for Visit (unrecogniz ed section and content) Reason Onset Date Comments Med Refill 03/29/2024 FOR RECORDS PERTAINING TO PATIENTS WHO ARE OR HAVE BEEN ENROLLED IN A CHEMICAL DEPENDENCY/SUBSTANCEABUSE PROGRAM, SOME INFORMATION MAY BE OMITTED. This clinical summary was aggregated from multiple sources. Caution should be exercised in using it in the provision of clinical care. This summary normalizes information from multiple sources, and as a consequence, information in this document may materially change the coding, format and clinical context of patient data. In addition, data may be omitted in some cases. CLINICAL DECISIONS SHOULD BE BASED ON THE PRIMARY CLINICAL RECORDS. [employer] [facility]. provides no warranty or guarantee of the accuracy or completeness of information in this document.
--- OUTSIDE RECORDS SUMMARY | 2024-08-06 07:13 | XMS_ITS | Encounter Summary ---
Author Organization [facility] Address [address] [place] [address] Care Team Providers Care Table Cut Off Saw Operator Name Role Phone Sergio Cano MD Unavailable Sergio Cano MD Primary Care Provider [phone] Encounter Details Date Type Department Care Team (Late st Contact Info) Description 03/09/2024 Abstract [facility] [address] [facility] [address] [place] [id number] Sergio Cano MD [address] [facility] [address] [place], [place] [id number] Social History Tobacco Use Types Packs/Day Years [...] declined 07/12/2023 How often do you attend caodaism or hindu serv ices? Patient declined 07/12/2023 Do you belong to any clubs o r organizations such as caodaism groups, unions, fraternal or athletic groups, or [...] medical care, and heating? Patient declined [facility]/12[facility]20[facility] - Occupational Stress Questionnaire Answer [...] place to sleep or slept in a retirement (including now)? Patient declined 07/12/2023 Sex and Gender Information Value Date Recorded Sex Assigned at Not on file Legal Sex Male 7:06 PM EDT Gender Identity Not on file Sexual Orientation Not on file documented as of this encounter Plan of Treatment Not on file documented as of this encounter Visit Diagnoses Not on filedocumented in this encounter Care Teams Table Cut Off Saw Operator Relationship Specialty Start Date End Date Sergio Cano MD [address] [place] [address] [place] [address] PCP - [facility] 01/07/22 Sergio Cano MD [address] [place] [address] [place] [address] PCP - General Family Medicine 06/15/22 documented as of this encounter
--- NOTE | 2024-08-06 07:30 | CA_ITS ---
Patient Name: KWAME LYLES MR#: [id number] : 1975 Exam Date: 08/06/2024 Ordering Doctor: ARIEL ADAMS CNP ECHOCARDIOGRAM REPORT PROCEDURE: CA ECHO DOPPLER COMPLETE INDICATIONS: acute combined systolic and diastolic heart failure, ablation COMPARISON: None. DESCRIPTION: COMPLETE ECHOCARDIOGRAM Real-time transthoracic echocardiography with 2D, M-mode, spectral and color flow Doppler performed. QUALITY: Technical quality was good. LEFT VENTRICLE: Normal chamber size. Mild concentric left ventricular hypertrophy. Systolic function is normal. Estimated left ventricular ejection fraction is 55%. LV EF: Normal left ventricular ejection fraction, (50-55%). DIASTOLIC: Diastolic function is indeterminate. ATRIAL SEPTUM: LEFT ATRIUM: Mild dilatation. RIGHT ATRIUM: Mild dilatation. RIGHT VENTRICLE: Normal chamber size. Normal right ventricular systolic function. TRICUSPID VALVE: Normal mobility and thickness. No stenosis with trivial regurgitation. Doppler studies reveal mildly (35-45) elevated right sided pressures. RVSP 38 mmHg MITRAL VALVE: Normal mobility and thickness. No evidence of mitral valve stenosis. There is no mitral annular calcification. Trivial mitral regurgitation. AORTIC VALVE: Normal trileaflet appearance. No visible sclerosis. Normal leaflet mobility. No evidence of aortic valve stenosis. No aortic regurgitation. AORTIC ROOT: Normal diameter and appearance, measuring 3.4 cm. Ascending aorta is normal in size, measuring 2.8 cm. PULMONIC VALVE: Normal thickness and mobility. No stenosis. No regurgitation. PERICARDIUM: No evidence of pericardial effusion. IVC: IVC is dilated (2.4 cm), does not fully collapse. PLEURA: CONCLUSION: 1. Mild concentric left ventricular hypertrophy with normal systolic function. Estimated LVEF is 55%. 2. Normal right ventricular size and systolic function. 3. Mild biatrial dilatation. 4. No significant valvular dysfunction. 5. Mildly elevated right-sided pressures. Adult Echocardiography Procedure Report Left Ventricle LVEDD (3.7 - 5.6 cm): 4.58 cm LVESD (2.2 - 4.0 cm): 3.91 cm LVIVS thickness (0.6 - 1.2 cm): 1.11 cm LVPW thickness (0.5 - 1.0 cm): 1.09 cm e': 0.11 m/s E - e': 7.63 LVOT Max Gradient: 3.97 mm[Hg] LVOT Area (cm2): 1.00 m/s Peak Velocity (LVOT): 1.00 m/s LVOT Diameter 2.15 cm Left Atrium LA Volume Index (2D A2C): 40.81 ml/m2 Left Atrium Systolic Dimension: 4.64 cm Mitral Valve MV E to A Ratio: 1.78 Mitral Valve A-Wave Peak Velocity: 0.48 m/s Mitral Valve E-Wave Peak Velocity: 0.87 m/s Right Ventricle Aorta AO Root Diam: 3.35 cm Ascending Ao Diam: 2.80 cm Aortic Valve AoV Area (Peak Roque): 3.27 cm2, 3.27 cm2 Peak Velocity(Antegrade Flow): 1.11 m/s Peak Gradient(Antegrade Flow): 4.93 mm[Hg] Tricuspid Valve Peak Velocity (Regurgitant Flow): 2.42 m/s Pulmonic Valve Peak Velocity: 1.22 m/s Peak Gradient: 5.92 mm[Hg] Right Atrium Right Atrium Systolic Pressure: 64.65 ml, 64.65 ml Dictated by: Alexi Alaniz M.D. on 08/06/2024 at 17:33 Approved by: Alexi Alaniz M.D. on 08/06/2024 at 17:38
== END 2024-08-06 07:12 | disposition home or self-care (01) ==
LOC: CARD 07:11
PROVIDERS: PCP Family Medicine; Visit Provider Nurse Practitioner Family
DX: I48.0 Paroxysmal atrial fibrillation (principal); I50.41 Acute combined systolic (congestive) and diastolic (congestive) heart failure
CPT/HCPCS: 93306; 93356